=== PATIENT | female | born 1955 | race Caucasian/White ===

== ENCOUNTER 2022-07-21 14:23 | Outpatient (REF) | payer MEDICARE, MEDICAID, SELFPAY ==
--- NOTE | 2022-07-21 10:30 | EMG_ITS ---
Please see scanned EMG / Nerve Conduction Report. MTDD
== END 2022-07-21 14:24 | disposition home or self-care (01) ==
LOC: HO.NEURO 14:23
PROVIDERS: PCP Pediatrics; Visit Provider Internal Medicine
DX: G56.03 Carpal tunnel syndrome, bilateral upper limbs (principal)
CPT/HCPCS: 95885; 95913

== ENCOUNTER 2024-04-26 09:59 | Outpatient (REF) | payer OTHER, SELFPAY ==
[2024-04-26 14:12] LABS: MANUAL DIFF FLAG NO
[2024-04-26 14:14] LABS: Appearance Urine Cloudy; Color Urine Yellow; Glucose Urine UA >=1000 mg/dL (Negative); Leukocyte Esterase Urine Moderate (2+) (Negative); Nitrite Urine Negative (Negative); Specific Gravity - Urine 1.025 (1.005-1.025); UMIC TRIGGER UACC YES; Urine Blood Negative (Negative); Urine Ketones Trace mg/dL (Negative); Urine Protein Trace mg/dL (Neg-Trace)
[2024-04-26 14:30] LABS: Basophils Absolute Auto 0.1 X10*3/uL (0.0-0.2); Basophils Percent Auto 1.2 % (0-2); Eosinophils Absolute Auto 0.3 X10*3/uL (0.0-0.4); Eosinophils Percent Auto 3.7 % (0-4); Hematocrit 39.6 % (37.0-47.0); Imm Gran Abs Auto 0.02 X10*3/uL (0.00-0.03); Imm Gran Pct Auto 0.3 % (0.0-0.4); Lymphocytes Absolute Auto 1.6 X10*3/uL (1.2-4.9); Lymphocytes Percent Auto 20.8 % (20-40); Mean Corpuscular HGB Conc 30.3 g/dl (31.0-35.0); Mean Corpuscular Hemoglobin 24.7 pg (27.0-33.0); Mean Corpuscular Volume 81.6 fL (80.0-98.0); Mean Platelet Volume 11.8 fL (9.4-12.3); Monocytes Absolute Auto 0.4 X10*3/uL (0.1-1.2); Monocytes Percent Auto 5.8 % (2-11); Neutrophils Absolute Auto 5.1 x10*3/uL (2.0-8.3); Neutrophils Percent Auto 68.2 % (45-73); Platelet Count 274 X10*3/uL (160-400); Red Blood Count 4.85 X10*6/uL (4.20-5.50); Red Cell Distribution Width 14.7 % (11.0-16.0); White Blood Count 7.5 X10*3/uL (4.8-10.8)
[2024-04-26 14:33] LABS: Bacteria Urine Trace (None Seen); Hyaline Casts Urine 0-2 /LPF (0-2); RBC Urine 0-2 /HPF (0-2); UACC Culture Trigger YES; WBC Urine 21-50 /HPF (0-5)
[2024-04-26 14:34] LABS: Estimated Average Glucose 206 mg/dL; Hemoglobin A1c % 8.8 % (<6.0)
[2024-04-26 14:54] LABS: Alanine Aminotransferase 55 U/L (0-31); Albumin Level 3.6 g/dL (3.5-5.0); Alkaline Phosphatase 125 U/L (39-117); Anion Gap 12 (12-20); Aspartate Amino Transferase 33 U/L (5-31); Bilirubin Direct 0.1 mg/dL (0.0-0.5); Bilirubin Total 0.3 mg/dL (0.0-1.0); Blood Urea Nitrogen 21 mg/dL (9-16); C Reactive Protein 0.71 mg/dL (< or = 0.50); Carbon Dioxide 28 mmol/L (22-29); Chloride 99 mmol/L (96-108); Cholesterol 95 mg/dL (<200); Estimated Glomerular Filt Rate 42; Glucose Fasting 387 mg/dL (60-99); HDL Cholesterol 35 mg/dL (>40); LDL Cholesterol Calculated 30 mg/dL (<100); Potassium 3.4 mmol/L (3.3-5.1); Sodium 136 mmol/L (135-145); Total Protein 6.8 g/dL (6.5-8.0); Triglycerides 152 mg/dL (<150)
[2024-04-26 15:02] LABS: TSH reflex Free T4 1.66 uIU/mL (0.32-4.0)
[2024-04-26 15:07] LABS: Erythrocyte Sedimentation Rate 14 MM/HR (0-20); Folate 11.3 ng/mL (> or = 4.0); Vitamin B12 1307 pg/mL (200-900)
== END 2024-04-26 10:00 | disposition home or self-care (01) ==
LOC: HO.CHCLDS 09:59
PROVIDERS: Visit Provider Pediatrics
DX: E11.40 Type 2 diabetes mellitus with diabetic neuropathy, unspecified (principal); Z79.4 Long term (current) use of insulin; M25.512 Pain in left shoulder; G89.29 Other chronic pain
CPT/HCPCS: 36415; 80048; 80061; 80076; 81001; 82607; 82746; 83036; 84443; 85025; 85652; 86140; 87086

== ENCOUNTER 2025-07-03 08:27 | Outpatient (REF) | payer OTHER, SELFPAY ==
--- OUTSIDE RECORDS SUMMARY | 2025-07-02 09:15 | XMS_ITS | Encounter Summary ---
Author Organization [employer] Address [address] [place] [address] [address] [place] [address] Care Team Providers Care Parking Technician Name Role Phone Karlie Prescott MD Primary Care Provider [phone] Yesi Joyce PharmD Unavailable [phone] Reason for Referral * Imaging (Routine) - Authorized Specialty Diagnoses / Procedures Referred By Contac t Referred To Contact Radiology Diagnoses Dizziness Syncope, unspecified syncope type Procedures Mr Brain w/ and w/o Contrast Karlie Prescott MD [address] [place] [phone] Phone: tel: fax: [facility] [address] [facility], [address] [place] [phone] Phone: tel: fax: Referral ID Status Reason Start Date Expiration Date V isits Requested Visits Authorized [id number] Authorized 07/02/2025 07/02/2026 1 1 Encounter Details Date Type Department Care Team (Late st Contact Info) Description 07/02/2025 9:15 AM EST Office Visit [facility] [address] [place] [address] Karlie Prescott MD [address] [place] [address] Polyuria (Primary Dx); Dizziness; Syncope, unspecified syncope type; Type 2 diabetes mellitus with diabetic neuropathy, with long-term current use of insulin (HCC); Chronic left shoulder pain Social History Tobacco Use Types Packs/Day Years Used Date Smoking Tobacco: Never Passive Smoke Exposure: Never Smokeless Tobacco: Never Depression Answer Date Recorded Patient Health Questionnaire-9 Score 15 07/02/2025 Patient Health Questionnaire-9 Score 15 07/02/2025 Last PHQ-9: Questionnaire Data Not on file 1 09/01/2024 Housing Stability Answer Date Recorded What is your housing situation today? I have nishant [employer] 07/02/[address] you li ve. Do you have problems with any of the following? Pests such as bugs, ants, or mice 07/02/2025 Food Insecurity Answer Date Recorded Within the past 12 months, y ou worried that your food would run out before you got money to buy more: Often true 2024 Within the past 12 months,th e food you bought just didn't last and you didn't have enough money to get more: Sometimes True 07/02/2025 Transportation Answer Date Recorded In the past 12 months, has l ack of transportation kept you from medical appts, meetings, work or from getting things needed for daily living? No 09/21/2024 Utilities Answer Date Recorded In the past 12 months, has t he electric, gas, oil or water company threatened to shut off services in your home? No 09/21/2024 Depression Answer Date Recorded Patient Health Questionnaire-2 Score 6 07/02/2025 Internet Access Answer Date Recorded Internet Access Q1 Yes 09/21/2024 Internet Access Q2 Not on file 09/21/2024 Comments No Sex and Gender Information Value Date Recorded Sex Assigned at Female 06/14/2022 10:18 AM EDT Legal Sex Female 10:18 AM EDT Gender Identity Female 06/14/2022 10:18 AM EDT Sexual Orientation Choose not to disclose 2021 10:18 AM EDT documented as of this encounter Last Filed Vital Signs Vital Sign Reading Time Taken Comments Blood Pressure 140/60 07/02/2025 9:08 AM EST Pulse 104 07/02/2025 9:08 AM EST Temperature 36.8 C (98.3 F) 07/02/2025 9:08 AM EST Respiratory Rate 20 07/02/2025 9:08 AM EST Oxygen Saturation - - Inhaled Oxygen Concentration - - Weight 68.9 kg (152 lb) 07/02/2025 9:08 AM EST Height 168.3 cm (5' 6.25 ) 07/02/2025 9:08 AM ES T Body Mass Index 24.35 07/02/2025 9:08 AM EST documented in this encounter Functional Status * Over the past 2 weeks, how often have you been bothered by any of the following problems? Question Answer Date of Assessment Author Patient Health Questionnaire -2 Score 6 07/02/2025 9:40 AM Mingo Dumont MA * Little interest or pleasure in doing things Answer Date of Assessment Author Nearly every day 07/02/2025 9:40 AM Wilma Guzman MA * Feeling down, depressed, or hopeless Answer Date of Assessment Author Nearly every day 07/02/2025 9:40 AM Wilma Guzman MA * Trouble falling or staying asleep, or sleeping too much Answer Date of Assessment Author Nearly every day 07/02/2025 9:40 AM Wilma Guzman MA * Feeling tired or having little energy Answer Date of Assessment Author Nearly every day 07/02/2025 9:40 AM Wilma Guzman MA * Poor appetite or overeating Answer Date of Assessment Author Several days 07/02/2025 9:40 AM Wilma Dumont MA * Feeling bad about yourself - or that you are a failure or have let yourself or your family down Answer Date of Assessment Author Not at all 07/02/2025 9:40 AM Wilma Dumont MA * Trouble concentrating on things, such as reading the newspaper or watching television Answer Date of Assessment Author Not at all 07/02/2025 9:40 AM Wilma Dumont MA * Moving or speaking so slowly that other people could have noticed? Or the opposite - being so fidgety or restless that you have been moving around a lot more than usual. Answer Date of Assessment Author More than half the days 07/02/2025 9:40 AM Wilma Austin MA * Thoughts that you would be better off or hurting yourself in some way Answer Date of Assessment Author Not at all 07/02/2025 9:40 AM Wilma Dumont MA * Patient Health Questionnaire-9 Score Answer Date of Assessment Author 15 07/02/2025 9:40 AM Wilma Dumont MA * How difficult have these problems made it for you to do your work, take care of things at home, or get along with other people? Answer Date of Assessment Author Somewhat difficult 07/02/2025 9:40 AM Wilma Garcia MA documented as of this encounter Progress Notes * Karlie Prescott MD - 07/02/2025 9:15 AM EST Images from the original note were not included. Subjective Patient ID: Daksha West is a 70 y.o. female who presents for F/U DM. 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 Reports being awakened by her glucose monitor due to low blood sugar, after which she consumes juice or something sweet to correct it. States that recent changes in her insulin regimen included lowering Lantus to 34 units and increasing pre-meal insulin to 25 units. Uses insulin three times daily before meals. Reports continued hypoglycemic episodes despite adjustment of Lantus. States that hypoglycemia also occurs during the day and is associated with falls and dizziness. Notes that her blood sugar was super low during some falls. Reports eating regular meals, including rice, b eans, meat, and plantains, but sometimes only eats a little or skips breakfast. Mentions taking jardiance and ozempic once a week for diabetes management. Hemoglobin A1c was 9.4 in January 2025 and decreased to 8.8 in May 2025.Sees [facility] Yesi Joyce on a regular basis as well and has a f/u in 08/08. Falls and Dizziness Reports several episodes of falling, sometimes without noticing, often associated with hypoglycemiaand dizziness. States that dizziness sometimes precedes falls and describes brief episodes where her mind goes blank. Denies persistent vertigo but acknowledges intermittent dizziness before falls.CT scan of the head performed in August 2021 after a fall was reported as normal. Shoulder Pain Reports left shoulder pain that doesn't limits ability to lift the arm. No history of trauma but has fallen on that side previously. Xray done in 11/06 was benign. Carpal Tunnel Syndrome Has a history of moderate carpal tunnel syndrome in both wrists confirmed by prior evaluation. Useswrist braces at night. Vision Changes Reports blurry vision during hypoglycemic episodes, especially at night, making it difficult to read. no prescription for glasses given at her last time [facility]. Urinary Symptoms States she urinates frequently but denies burning with urination. Occasionally experiences constipation. Mood Describes variable mood with some days feeling cheerful and other days feeling low energy or tired. Fibromyalgia Has a known diagnosis of fibromyalgia with chronic pain complaints. Has bilateral moderate carpal tunnel syndrome diagnosis via EMG but not using wrist braces . Review of Systems Constitutional: Negative for activity change, chills, fever and unexpected weight change. Respiratory: Negative for cough, shortness of breath and wheezing. Cardiovascular: Negative for chest pain, palpitations and leg swelling. Gastrointestinal: Negative for abdominal pain and blood in stool. Endocrine: Negative for polydipsia and polyuria. Genitourinary: Negative for decreased urine volume, difficulty urinating, dysuria and hematuria. Musculoskeletal: Negative for arthralgias and gait problem. Skin: Negative for color change and rash. Neurological: Positive for light-headedness. Negative for dizziness and headaches. Hematological: Negative for adenopathy. Psychiatric/Behavioral: Negative for dysphoric mood, hallucinations, sleep disturbance and suicidalideas. The patient is not nervous/anxious. Objective BP (!) 140/60 (BP Location: Left arm, Patient Position: Sitting, BP Cuff Size: Adult) Pulse 104 Temp 98.3 ??F (36.8 ??C) (Oral) Resp 20 Ht 5' 6.25 (1.683 m) Wt 152 lb (68.9 kg) BMI 24.35 kg/m?? Physical Exam Vitals reviewed. Constitutional: General: She is not in acute distress. Appearance: Normal appearance. She is not ill-appearing. HENT: Head: Normocephalic. Right Ear: Tympanic membrane and ear canal normal. Left Ear: Tympanic membrane and ear canal normal. Nose: Nose normal. Mouth/Throat: Mouth: Mucous membranes are moist. Pharynx: No oropharyngeal exudate or posterior oropharyngeal erythema. Eyes: Extraocular Movements: Extraocular movements intact. Conjunctiva/sclera: Conjunctivae normal. Pupils: Pupils are equal, round, and reactive to light. Cardiovascular: Rate and Rhythm: Normal rate and regular rhythm. Pulses: Normal pulses. Heart sounds: Normal heart sounds. Pulmonary: Effort: Pulmonary effort is normal. No respiratory distress. Breath sounds: Normal breath sounds. Abdominal: Palpations: Abdomen is soft. Musculoskeletal: General: No swelling. Normal range of motion. Right shoulder: Normal pulse. Left shoulder: Tenderness present. No swelling or crepitus. Normal range of motion. Normal pulse. Arms: Cervical back: Normal range of motion. No rigidity. Right lower leg: No edema. Left lower leg: No edema. Lymphadenopathy: Cervical: No cervical adenopathy. Skin: General: Skin is warm. Capillary Refill: Capillary refill takes less than 2 seconds. Neurological: General: No focal deficit present. Mental Status: She is alert and oriented to person, place, and time. Psychiatric: Mood and Affect: Mood normal. Behavior: Behavior normal. Thought Content: Thought content normal. Judgment: Judgment normal. Assessment/Plan Polyuria: - Polyuria likely related to diabetes management and use of oral antidiabetic medication. - Recommended increased fluid intake. Ordered urinalysis to evaluate for urinary tract infection. Advised to continue monitoring urine clarity. Dizziness: - Dizziness associated with episodes of hypoglycemia and syncope. - Ordered blood tests to evaluate renal function and other metabolic parameters. Ordered MRI of thebrain for further evaluation due to persistent dizziness and history of syncope. Advised to presentfasting for blood work. Syncope, unspecified syncope type: - Syncope episodes likely related to hypoglycemia; previous CT scan of the brain in August 2021 was normal. - Ordered MRI of the brain for further evaluation. Advised blood work to assess renal function prior to MRI scheduling. Type 2 diabetes mellitus with diabetic neuropathy, with long-term current use of insulin (HCC): - Diabetes management complicated by frequent nocturnal hypoglycemia and polyuria. Diabetic neuropathy present. - Adjusted Lantus insulin dose from 34 units to 30 units to reduce nocturnal hypoglycemia. Advised continued use of pre-meal insulin injections. Ordered comprehensive blood work including renal function, cholesterol, and glucose levels. Advised to maintain regular meals and monitor for hypoglycemicepisodes. Advised increased fluid intake, especially with oral antidiabetic medication ([facility]) to reduce risk of urinary tract infection. Scheduled follow-up appointment in August. Chronic left shoulder pain: - Chronic left shoulder pain without evidence of arthritis on prior imaging. - Advised continued use of prescribed pain medication. Ordered MRI of the shoulder for further evaluation. Carpal tunnel syndrome: - Bilateral moderate carpal tunnel syndrome confirmed by prior evaluation. - Advised continued use of wrist braces, especially at night. Referral to hand surgeon previously made; advised to return to hand surgeon if symptoms worsen or if objects are dropped from hands. Surgery offered if symptoms become severe and patient consents. Fibromyalgia: - Fibromyalgia contributing to pain symptoms. - No change in medication dosage until further evaluation is completed. Blurred vision: - Blurred vision associated with hypoglycemic episodes; no current prescription for corrective lenses. - Referral to ophthalmology for further evaluation. Diagnoses and all orders for this visit: Polyuria - POCT Urinalysis - Albumin, Random Urine W/Creatinine; Future - Lipid Panel, Standard; Future - Basic Metabolic Panel, Fasting; Future - CBC auto differential; Future - TSH W/Reflex to FT4; Future - Hepatic Function Panel; Future Dizziness - Mr Brain w/ and w/o Contrast; Future - Albumin, Random Urine W/Creatinine; Future - Lipid Panel, Standard; Future - Basic Metabolic Panel, Fasting; Future - CBC auto differential; Future - TSH W/Reflex to FT4; Future - Hepatic Function Panel; Future Syncope, unspecified syncope type - Mr Brain w/ and w/o Contrast; Future - Albumin, Random Urine W/Creatinine; Future - Lipid Panel, Standard; Future - Basic Metabolic Panel, Fasting; Future - CBC auto differential; Future - TSH W/Reflex to FT4; Future - Hepatic Function Panel; Future Type 2 diabetes mellitus with diabetic neuropathy, with long-term current use of insulin (HCC) - Albumin, Random Urine W/Creatinine; Future - Lipid Panel, Standard; Future - Basic Metabolic Panel, Fasting; Future - CBC auto differential; Future - TSH W/Reflex to FT4; Future - Hepatic Function Panel; Future Chronic left shoulder pain - Albumin, Random Urine W/Creatinine; Future - Lipid Panel, Standard; Future - Basic Metabolic Panel, Fasting; Future - CBC auto differential; Future - TSH W/Reflex to FT4; Future - Hepatic Function Panel; Future documented in this encounter Plan of Treatment Upcoming Encounters Date Type Department Care Team (Late st Contact Info) Description 07/25/2025 1:00 PM EST Medication Management [facility] [address] [place] [address] Yesi Joyce, BranD [address] [place] [address] 09/05/2025 3:15 PM EST Office Visit [facility] [address] [place] [address] Karlie Prescott MD [address] [place] [address] Scheduled Orders Name Type Priority Associated Diagnoses Orde r Schedule Mr Brain w/ and w/o Contrast Imaging Routine Dizziness Syncope, unspecified syncope type Expected: 07/02/2025, Expires: 07/02/2026 documented as of this encounter Goals Goal Patient Goal Type Associated Problems Recent Progress Patient-Stated? Author Help patients manage their type 2 diabetes Care Plan Help patients manage their type 2 diabetes No Wilma Monzon MA Weekly blood pressure task Care Plan Weekly blood pressure task No Wilma Monzon MA Help patients manage their type 2 diabetes Care Plan Help patients manage their type 2 diabetes No Wilma Monzon MA Patient has chronic kidney disease Care Plan Patient has chronic kidney disease No Wilma Monzon MA Weekly blood pressure task Care Plan Weekly blood pressure task No Wilma Monzon MA Patient has chronic kidney disease Care Plan Patient has chronic kidney disease No Wilma Monzon MA Weekly blood pressure task Care Plan Weekly blood pressure task No Wilma Monzon MA Weekly blood pressure task Care Plan Weekly blood pressure task No Wilma Monzon MA Patient has chronic kidney disease Care Plan Patient has chronic kidney disease No Wilma Monzon MA Patient has chronic kidney disease Care Plan Patient has chronic kidney disease No Wilma Monzon MA documented as of this encounter Procedures Procedure Name Priority Date/Time Associated Diagnosis Comments ALBUMIN, RANDOM URINE W/CREATININE Routine 07/03/2025 8:30 AM EST Polyuria Dizziness Syncope, unspecified syncope type Type 2 diabetes mellitus with diabetic neuropathy, with long-term current use of insulin (HCC) Chronic left shoulder pain BASIC METABOLIC PANEL, FASTING Routine 07/03/2025 8:28 AM EST Polyuria Dizziness Syncope, unspecified syncope type Type 2 diabetes mellitus with diabetic neuropathy, with long-term current use of insulin (HCC) Chronic left shoulder pain TSH W/REFLEX TO FT4 Routine 07/03/2025 8 :28 AM EST Polyuria Dizziness Syncope, unspecified syncope type Type 2 diabetes mellitus with diabetic neuropathy, with long-term current use of insulin (HCC) Chronic left shoulder pain CBC WITH AUTO DIFFERENTIAL Routine 07/03/2025 8:28 AM EST Polyuria Dizziness Syncope, unspecified syncope type Type 2 diabetes mellitus with diabetic neuropathy, with long-term current use of insulin (HCC) Chronic left shoulder pain HEPATIC FUNCTION PANEL Routine 07/03/2025 8:28 AM EST Polyuria Dizziness Syncope, unspecified syncope type Type 2 diabetes mellitus with diabetic neuropathy, with long-term current use of insulin (HCC) Chronic left shoulder pain LIPID PANEL, STANDARD Routine 07/03/2025 8:28 AM EST Polyuria Dizziness Syncope, unspecified syncope type Type 2 diabetes mellitus with diabetic neuropathy, with long-term current use of insulin (HCC) Chronic left shoulder pain POCT URINALYSIS DIPSTICK Routine 07/02/2025 9:38 AM EST Polyuria documented in this encounter Results * (ABNORMAL) Albumin, Random Urine W/Creatinine (07/03/2025 8:30 AM EST) Creatinine, Urine 106.50 mg/dL [facility] Microalbumin Urine 63.0 mg/L [facility] Microalbum Creatinine Ratio Ur 59.1(H) <30 ug/mg cr [facility] Comment:Albumin/Creatinine R at Reference Ranges: Normal: < 30 ug/mg creatinine Microalbuminuria: 30 - 300 ug/mg creatinineClinical Albuminuria: > 300 ug/mg creatinine Urine (Urine, Random) 07/03/2025 8:30 AM EST 07/03/2025 2:05 PM EST Karlie Prescott MD LAB URINE ORDERABLES Final Re sult Performing Organization Address City/[facility]/ZIP Co de Phone Number [facility] [address] [place] [phone] * (ABNORMAL) Hepatic Function Panel (07/03/2025 8:28 AM EST) Bilirubin, Total 0.3 0.0 - 1.0 mg/dL [facility] Bilirubin, Direct 0.2 0.0 - 0.5 mg/dL [facility] Aspartate Amino Transferase 45(H) 5 - 31 U/L [facility] Alanine Aminotransferase 33(H) 0 - 31 U/L [facility] Total Protein 7.6 6.5 - 8.0 g/dL [facility] Albumin Level 4.2 3.5 - 5.0 g/dL [facility] Alkaline Phosphatase 134(H) 39 - 117 U/L [facility] Blood Venous blood specimen / Unknown 07/03/2025 8:28 AM EST 07/03/2025 2:06 PM EST Karlie Prescott MD LAB BLOOD ORDERABLES Final Re sult Performing Organization Address [facility] Co de Phone Number [facility] [address] [place] [phone] * TSH W/Reflex to FT4 (07/03/2025 8:28 AM EST) TSH reflex Free T4 3.18 0.32 - 4.0 uIU/mL [facility] Blood Venous blood specimen / Unknown 07/03/2025 8:28 AM EST 07/03/2025 2:06 PM EST Karlie Prescott MD LAB BLOOD ORDERABLES Final Re sult Performing Organization Address City/[facility]/ZIP Co de Phone Number [facility] [address] [place] [phone] * (ABNORMAL) CBC auto differential (07/03/2025 8:28 AM EST) White Blood Count 6.5 4.8 - 10.8 X10*3/uL [facility] Red Blood Count 5.37 4.20 - 5.50 X10*6/uL [facility] Hemoglobin 13.0 12.0 - 16.0 g/dl [facility] Hematocrit 43.7 37.0 - 47.0 % [facility] Mean Corpuscular Volume 81.4 80.0 - 98.0 fL [facility] Mean Corpuscular Hemoglobin 24.2(L) 27.0 - 33.0 pg [facility] Mean Corpuscular HGB Conc 29.7(L) 31.0 - 35.0 g/dl [facility] Red Cell Distribution Width 14.4 11.0 - 16.0 % [facility] Platelet Count 256 160 - 400 X10*3/uL [facility] Mean Platelet Volume 11.2 9.4 - 12.3 fL [facility] Neutrophils Percent Auto 61.3 45 - 73 % [facility] Imm Gran Pct Auto 0.2 0.0 - 0.4 % [facility] Lymphocytes Percent Auto 25.3 20 - 40 % [facility] Monocytes Percent Auto 7.0 2 - 11 % [facility] Eosinophils Percent Auto 4.2(H) 0 - 4 % [facility] Basophils Percent Auto 2.0 0 - 2 % [facility] NRBC Pct Auto 0.0 0.0 - 0.2 /100WBC [facility] Neutrophils Absolute Auto 4.0 2.0 - 8.3 x10*3/uL [facility] Imm Gran Abs Auto 0.01 0.00 - 0.03 X10*3/uL [facility] Lymphocytes Absolute Auto 1.6 1.2 - 4.9 X10*3/uL [facility] Monocytes Absolute Auto 0.5 0.1 - 1.2 X10*3/uL [facility] Eosinophils Absolute Auto 0.3 0.0 - 0.4 X10*3/uL [facility] Basophils Absolute Auto 0.1 0.0 - 0.2 X10*3/uL [facility] NRBC Abs Auto 0.000 0.0 - 0.012 X10*3/uL [facility] Blood Venous blood specimen / Unknown 07/03/2025 8:28 AM EST 07/03/2025 2:06 PM EST Karlie Prescott MD LAB BLOOD ORDERABLES Final Re sult [facility] [address] [place] [phone] * (ABNORMAL) Basic Metabolic Panel, Fasting (07/03/2025 8:28 AM EST) Sodium 142 135 - 145 mmol/L [facility] Potassium 3.6 3.3 - 5.1 mmol/L [facility] Chloride 105 96 - 108 mmol/L [facility] Carbon Dioxide 30(H) 22 - 29 mmol/L [facility] Anion Gap 11(L) 12 - 20 [facility] Urea Nitrogen (BUN) 14 9 - 16 mg/dL [facility] Creatinine, Serum 0.79 0.5 - 1.4 mg/dL [facility] Estimated Glomerular Filt Rate >60 [facility] Comment:Chronic Kidney Disea se: Estimated GFR < 60 mL/min/1.58m1Fgiwec Kidney Disease: Estimated GFR < 15 mL/min/1.73m2 Glucose Fasting 123(H) 60 - 99 mg/dL [facility] Comment:A fasting glucose fr om 100-125 mg/dl is considered impaired(pre-diabetes). Calcium 9.2 8.4 - 10.2 mg/dL [facility] Blood Venous blood specimen / Unknown 07/03/2025 8:28 AM EST 07/03/2025 2:06 PM EST us Karlie Prescott MD LAB BLOOD ORDERABLES Final Re sult Performing Organization Address [facility] Co de Phone Number [facility] [address] [place] [phone] * (ABNORMAL) Lipid Panel, Standard (07/03/2025 8:28 AM EST) Triglycerides 142 <150 mg/dL [facility] Comment:Desirable Triglyceri de: less than 150 mg/dLBorderline High Triglyceride 150-199 mg/dLHigh Triglyceride: 200-499 mg/dLVery High Triglyceride: greater than or equal to 5OO mg/dL Cholesterol 107 <200 mg/dL [facility] Comment:Desirable Cholestero l: less than 200 mg/dLBorderline High Cholesterol: 200-239 mg/dLHigh Cholesterol: greater than 239 mg/dL LDL Cholesterol Calculated 40 <100 mg/dL [facility] Comment:Desirable LDL: less than 100 mg/dLNear Optimal/Above Optimal LDL: 110- 129 mg/dLBorderline High LDL: 130-159 mg/dLHigh LDL: 160-189 mg/dLVery High LDL: greater than or equal to 190 mg/dL HDL Cholesterol 39(L) >40 mg/dL [facility] Comment:Desirable HDL: great er than 40 mg/dL Note: This HDL assay may give artificially low results in patients with liver disease. Blood Venous blood specimen / Unknown 07/03/2025 8:28 AM EST 07/03/2025 2:06 PM EST Karlie Prescott MD LAB BLOOD ORDERABLES Final Re sult Performing Organization Address [facility] Co de Phone Number [facility] [address] [place] [address] [phone] * POCT Urinalysis (07/02/2025 9:38 AM EST) Color, UA Yellow Clarity, UA Clear Glucose, UA Many Comment:500mg/dL Bilirubin, UA Negative Ketones, UA Negative Spec Grav, UA 1.015 Blood, UA Negative Negative, None Detected pH, UA 5.5 Protein, UA Negative Urobilinogen, UA 1.0 Leukocytes, UA Trace Negative, Rare, Trace Nitrite, UA Negative Negative, None Detected Appearance, UA clear QC Media Lot # [id number] Lot# Expiration Date [id number] Urine (Urine, Random) 07/02/2025 9:38 AM EST Karlie Prescott MD POINT OF CARE TEST ENTER/EDIT ORDERABLES Final Result documented in this encounter Visit Diagnoses Diagnosis Polyuria- Primary Dizziness Dizziness and giddiness Syncope, unspecified syncope type Type 2 diabetes mellitus with diabetic neuropathy, with long-term current use of insulin (HCC) Chronic left shoulder pain Pain in joint, shoulder region documented in this encounter Additional Health Concerns Active Problems Noted Date Diagnosed Date Help patients manage their type 2 diabetes 07/01 Weekly blood pressure task 07/01/2025 Help patients manage their type 2 diabetes 07/01 Patient has chronic kidney disease 07/01/2025 Weekly blood pressure task 07/01/2025 Patient has chronic kidney disease 07/01/2025 Weekly blood pressure task 07/02/2025 Weekly blood pressure task 07/02/2025 Patient has chronic kidney disease 07/02/2025 Patient has chronic kidney disease 07/02/2025 Assessment Noted Time PHQ-9 Depression Total Score: 15 025 9:40 AM EST documented as of this encounter Care Teams Parking Technician Relationship Specialty Start Date End Date Karlie Prescott MD [address] [place] [address] PCP - General Family Medicine 08/15/18 Yesi Joyce PharmD [address] [place] [address] Pharmacist Internal Medicine 12/13/24 [employer] 12/06/22 documented as of this encounter
[2025-07-03 14:11] LABS: MANUAL DIFF FLAG NO
[2025-07-03 14:17] LABS: Hematocrit 43.7 % (37.0-47.0); Hemoglobin 13.0 g/dl (12.0-16.0); Imm Gran Abs Auto 0.01 X10*3/uL (0.00-0.03); Imm Gran Pct Auto 0.2 % (0.0-0.4); Lymphocytes Absolute Auto 1.6 X10*3/uL (1.2-4.9); Mean Corpuscular HGB Conc 29.7 g/dl (31.0-35.0); Mean Corpuscular Hemoglobin 24.2 pg (27.0-33.0); Mean Corpuscular Volume 81.4 fL (80.0-98.0); NRBC Abs Auto 0.000 X10*3/uL (0.0-0.012); NRBC Pct Auto 0.0 /100WBC (0.0-0.2); Platelet Count 256 X10*3/uL (160-400); Red Blood Count 5.37 X10*6/uL (4.20-5.50); White Blood Count 6.5 X10*3/uL (4.8-10.8)
[2025-07-03 14:51] LABS: Microalbum/Creatinine Ratio Ur 59.1 ug/mg cr (<30)
[2025-07-03 15:53] LABS: Alanine Aminotransferase 33 U/L (0-31); Albumin Level 4.2 g/dL (3.5-5.0); Alkaline Phosphatase 134 U/L (39-117); Anion Gap 11 (12-20); Aspartate Amino Transferase 45 U/L (5-31); Blood Urea Nitrogen 14 mg/dL (9-16); Calcium 9.2 mg/dL (8.4-10.2); Carbon Dioxide 30 mmol/L (22-29); Chloride 105 mmol/L (96-108); Cholesterol 107 mg/dL (<200); Estimated Glomerular Filt Rate > 60; HDL Cholesterol 39 mg/dL (>40); Potassium 3.6 mmol/L (3.3-5.1); Sodium 142 mmol/L (135-145); Total Protein 7.6 g/dL (6.5-8.0); Triglycerides 142 mg/dL (<150)
--- OUTSIDE RECORDS SUMMARY | 2025-07-03 16:11 | XMS_ITS | Encounter Summary ---
Author Organization [employer] Address [address] [place] [address] 7 [place] [address] Care Team Providers Care Enrollment Counselor Name Role Phone Karlie Prescott MD Primary Care Provider [phone] Yesi Joyce PharmD Unavailable [phone] Reason for Visit * Reason Comments Med Refill Encounter Details Date Type Department Care Team ([facility] Contact Info) Description 02/10/2023 Refill [facility] MED & PEDS [address] [place] [address] Hudson Lowery MD [address] [place] [address] Social History Tobacco Use Types Packs/Day Years Used Date Smoking Tobacco: Never Assessed Comments Unknown Sex and Gender Information Value Date Recorded Sex Assigned at Female 06/14/2022 10:18 AM EDT Legal Sex Female 10:18 AM EDT Gender Identity Female 06/14/2022 10:18 AM EDT Sexual Orientation Choose not to disclose 2021 10:18 AM EDT documented as of this encounter Plan of Treatment Upcoming Encounters Date Type Department Care Team ([facility] Contact Info) Description 07/25/2025 1:00 PM EST Medication Management [facility] MED & PEDS [address] [place] [address] Yesi Joyce, PharmD [address] [place] [address] 09/05/2025 3:15 PM EST Office Visit [facility]ED[facility] [address] [place] [address] Karlie Prescott MD [address] [place] [address] documented as of this encounter Visit Diagnoses Not on filedocumented in this encounter Care Teams Enrollment Counselor Relationship Specialty Start Date End Date Karlie Prescott MD [address] [place] [address] PCP - General Family Medicine 08/15/18 Yesi Joyce PharmD [address] [place] [address] Pharmacist Internal Medicine 12/13/24 [employer] 12/06/22 documented as of this encounter
--- OUTSIDE RECORDS SUMMARY | 2025-07-03 16:11 | XMS_ITS | Encounter Summary ---
Author Organization [employer] Address [address] [facility] [address] [place] [address] Care Team Providers Care Auto Heater Mechanic Name Role Phone Karlie Prescott MD Primary Care Provider [phone] Yesi Joyce PharmD Unavailable [phone] Encounter Details Date Type Department Care Team (Latest Contact Info) Description 07/02/2025 Travel Social History Tobacco Use Types Packs/Day Years [...] AM EDT documented as of this encounter Functional Status * Over the [...] than half the days 07/02/2025 9:40 AM EST Wilma Banks MA * Thoughts that you would be better off or hurting yourself in some way Answer Date of Assessment Author Not at all 07/02/2025 9:40 AM EST Wilma Monzon MA * Patient Health Questionnaire-9 Score Answer Date of Assessment Author 15 07/02/2025 9:40 AM EST Wilma Monzon MA * How difficult have these problems made it for you to do your work, take care of things at home, or get along with other people? Answer Date of Assessment Author Somewhat difficult 07/02/2025 9:40 AM EST Wilma Titus MA documented as of this encounter Plan of Treatment Upcoming Encounters Date Type Department Care Team (Late st Contact Info) Description 07/25/2025 1:00 PM EST Medication Management [facility] MED & PEDS [address] [place] [address] Yesi Joyce PharmD [address] [place] [address] 09/05/2025 3:15 PM EST Office Visit [facility] [address] [place] [address] Karlie Prescott MD [address] [place] [address] documented as of this encounter Goals Goal [...] Care Plan Patient has chronic kidney disease Wilma Bashir MA Weekly blood pressure task Care Plan [...] Monzon [place] documented as of this encounter Visit Diagnoses Not on filedocumented in this encounter Additional Health Concerns Active [...] documented as of this encounter Care Teams Auto Heater Mechanic Relationship Specialty Start Date End Date Karlie Prescott MD [address] [place] [address] PCP - General Family Medicine 08/15/18 Yesi Joyce PharmD [address] [place] [address] Pharmacist Internal Medicine 12/13/24 [employer] 12/06/22 documented as of this encounter
--- OUTSIDE RECORDS SUMMARY | 2025-07-03 16:11 | XMS_ITS | Encounter Summary ---
Author Organization [employer] Address [address] [place] [address] 7 [place] [address] Care Team Providers Care Entry Level Sales Consultant Name Role Phone Karlie Prescott MD Primary Care Provider [phone] Yesi Joyce PharmD Unavailable [phone] Encounter Details Date Type Department Care Team ([facility] Contact Info) Description 02/02/2023 Abstract [facility] MEDICINE [address] [place] [address] Karlie Prescott MD [address] [place] [address] Social History Tobacco Use Types Packs/Day Years [...] Upcoming Encounters Date Type Department Care Team ([facility] Contact Info) Description 07/25/2025 1:00 PM EST Medication Management [facility] MED & PED[facility] [address] [place] [address] Yesi Joyce PharmD [address] [place] [address] 09/05/2025 3:15 PM EST Office Visit [facility] [address] [place] [address] Karlie Prescott MD [address] [place] [address] documented as of this encounter Visit Diagnoses Not on filedocumented in this encounter Care Teams Entry Level Sales Consultant Relationship Specialty Start Date End Date Karlie Prescott MD [address] [place] [address] PCP - General Family Medicine 08/15/18 Yesi Joyce PharmD [address] [place] [address] Pharmacist Internal Medicine 12/13/24 [employer] 12/06/22 documented as of this encounter
--- OUTSIDE RECORDS SUMMARY | 2025-07-03 16:11 | XMS_ITS | Encounter Summary ---
Author Organization [employer] Address [address] [place] [address] [place] [address] Care Team Providers Care Mulcher Operator Name Role Phone Karlie Prescott MD Primary Care Provider [phone] Yesi Joyce PharmD Unavailable [phone] Encounter Details Date Type Department Care Team ([facility] Contact Info) Description 04/15/2023 [facility] Information Management [address] [place], [place] [phone] Karlie Prescott MD [address] [place] [address] Social History Tobacco Use Types Packs/Day Years [...] Encounters Date Type Department Care Team (Late Contact Info) Description 07/25/2025 1:00 PM EST Medication Management [facility] MED & PEDS [address] [place] [address] Yesi Joyce PharmD [address] [place] [address] 09/05/2025 3:15 PM EST Office Visit [facility] MED & PEDS [address] [place], [place] [phone] Karlie Prescott MD [address] [place] [address] documented as of this encounter Visit Diagnoses Not on filedocumented in this encounter Care Teams Mulcher Operator Relationship Specialty Start Date End Date Karlie Prescott MD [address] [place] [address] PCP - General Family Medicine 08/15/18 Yesi Joyce, BranD [address] [place] [address] Pharmacist Internal Medicine 12/13/24 [employer] 12/06/22 documented as of this encounter
--- OUTSIDE RECORDS SUMMARY | 2025-07-03 16:11 | XMS_ITS | Encounter Summary ---
Author Organization [email or web address] Address [address] [place] [address] 7 [place] [address] Care Team Providers Care Net Development Manager Name Role Phone Karlie Prescott MD Primary Care Provider [phone] Yesi Joyce PharmD Unavailable [phone] Reason for Visit * Reason Onset Date Comments Durable Medical Equipment 09/20/2022 Encounter Details Date Type Department Care Team ([facility] Contact Info) Description 09/20/2022 Telephone [facility] CHC MED & PEDS [address] [place], [place] [phone] Karlie Prescott MD [address] [place] [address] Durable Medical Equipment Social History Tobacco Use Types Packs/Day Years Used Date Smoking Tobacco: Never Assessed Comments Unknown Sex and Gender Information Value Date Recorded Sex Assigned at Female 06/14/2022 10:18 AM EDT Legal Sex Female 10:18 AM EDT Gender Identity Female 06/14/2022 10:18 AM EDT Sexual Orientation Choose not to disclose 2021 10:18 AM EDT COVID-19 Exposure Response Date Recorded In the last 10 days, have yo u been in contact with someone who was confirmed or suspected to have Coronavirus/COVID-19? No / Unsure 08/27/2022 11:22 AM EST documented as of this encounter Miscellaneous Notes * Telephone Encounter - Hazel Almanza - 09/20/2022 11:54 AM EST Tc from pt requesting a new wrist braces to be sent to [facility] . phone: [phone] documented in this encounter Plan of Treatment Upcoming Encounters Date Type Department Care Team (Late st Contact Info) Description 07/25/2025 1:00 PM EST Medication Management [facility] MED & PEDS [address] [place] [address] Yesi Joyce PharmD [address] [place] [address] 09/05/2025 3:15 PM EST Office Visit [facility] MED [facility] PED[facility] [address] [place] [address] Karlie Prescott MD [address] [place] [address] documented as of this encounter Visit Diagnoses Not on filedocumented in this encounter Care Teams Net Development Manager Relationship Specialty Start Date End Date Karlie Prescott MD [address] [place] [address] PCP - General Family Medicine 08/15/18 Yesi Joyce PharmD [address] [place] [address] Pharmacist Internal Medicine 12/13/24 [employer] 12/06/22 documented as of this encounter
--- OUTSIDE RECORDS SUMMARY | 2025-07-03 16:11 | XMS_ITS | Clinical Summary ---
Author Organization [employer] Address [address] [place] [address] Care Team Providers Care Electrification Adviser Name Role Phone Karlie Prescott MD Primary Care Provider [phone] Yesi Joyce PharmD Unavailable [phone] Allergies No known active allergies Medications * This document contains information received from the source organization and may not represent a complete record from that organization. clonazePAM (KlonoPIN) 0.5 MG tablet 0.5 mg in the morning and 0.5 mg at noon and 0.5 mg in the evening. Active ibuprofen 600 MG tablet Take 600 mg by mouth in the morning and 600 mg at noon and 600 mg in the evening. Active lidocaine (Lidoderm) 5 % patch Apply 1 patch topically in the morning. Remove & discard patch within 12 hours or as directed by MD. 30 patch 3 024 Active fluticasone (Flonase) 50 MCG/ACT nasal spray Administer 1-2 sprays into each nostril Once per day. 16 g 3 024 Active Blood Glucose Monitoring Suppl (Blood Glucose Monitor System) w/Device kitIndications:T ype 2 diabetes mellitus with diabetic neuropathy, with long-term current use of insulin ([facility]) Check blood sugar as needed several times er day for better control of DM 1 kit 024 Active omeprazole (PriLOSEC) [address] capsule TAKE ONE CAPSULE EVERY MORNING BEFORE BREAKFAST 90 capsule 6 025 Active Jardiance 25 MGIndications:Ty pe 2 diabetes mellitus with hyperglycemia, with long-term current use of insulin ([facility]) TAKE ONE TABLET EVERY MORNING 90 tablet 6 025 Active atorvastatin (Lipitor) 40 MG tabletIndication s:Type 2 diabetes mellitus with diabetic polyneuropathy, with long-term current use of insulin ([facility]) TAKE ONE TABLET EVERY NIGHT AT BEDTIME 90 tablet 3 Active Easy Touch Lancets 33G/Twist miscIndications: Type 2 diabetes mellitus with diabetic polyneuropathy, with long-term current use of insulin ([facility]) USE TO TEST BLOOD SUGAR THREE TIMES DAILY 100 each Active BD Pen Needle Hyacinth U/F 32G X 4 MM misc USE FOUR DAILY 100 each 025 Active amitriptyline (Elavil) 100 MG tablet TAKE ONE TABLET EVERY NIGHT AT BEDTIME 30 tablet 11 07/02/20 25 9:49 AM EST 025 Active glucose blood (FREESTYLE LITE) test stripIndications :Type 2 diabetes mellitus with diabetic polyneuropathy, with long-term current use of insulin ([facility]) USE TO TEST BLOOD SUGAR THREE TIMES DAILY 100 strip Active Continuous Glucose Sensor (FreeStyle Amanda 3 Plus Sensor) misc 1 each every 15 days. 2 each Active glucose blood (FreeStyle Precision Dexter Test) test strip Test blood sugar up to 3 times daily as directed 100 each Active Isopropyl Alcohol (Alcohol Wipes) 70 % misc Use 4 times daily 100 each 025 Active Ozempic, 2 MG/DOSE, 8 MG/3ML solution pen-injectorIndi cations:Type 2 diabetes mellitus without complications ([facility]) INJECT 2 MG'S SUBCUTANEOUSLY EVERY 7 DAYS IN THE ABDOMEN, THIGHS OR UPPER ARM. ROTATE INJECTION SITES. 3 mL 6 Active Alcohol Swabs (Alcohol Prep) 70 % pads USE FOUR TIMES DAILY Active sertraline (Zoloft) 100 MG tabletIndication s:Adjustment disorder with depressed mood,Type 2 diabetes mellitus with diabetic polyneuropathy, with long-term current use of insulin ([facility]) TAKE ONE TABLET EVERY NIGHT AT BEDTIME 30 tablet 5 Active losartan (Cozaar) 25 MG tablet TAKE ONE TABLET EVERY MORNING 30 tablet 11 07/02/20 25 9:49 AM EST 025 Active busPIRone (Buspar) 7.5 MG tabletIndication s:Adjustment disorder with depressed mood,Type 2 diabetes mellitus with diabetic polyneuropathy, with long-term current use of insulin ([facility]) TAKE ONE TABLET TWICE DAILY IN THE MORNING AND AT BEDTIME 60 tablet 5 025 Active loratadine (Claritin) 10 MG tabletIndication s:Type 2 diabetes mellitus with diabetic polyneuropathy, with long-term current use of insulin ([facility]),Adjustment disorder with depressed mood TAKE ONE TABLET EVERY MORNING 90 tablet 1 025 Active cholecalciferol (Vitamin D-3) 125 MCG (5000 UT) capsule TAKE ONE CAPSULE EVERY MORNING 30 capsule 2 025 Active insulin aspart (NovoLOG FLEXPEN) 100 UNIT/ML penIndications:T ype 2 diabetes mellitus with diabetic neuropathy, with long-term current use of insulin ([facility]) Inject 25 units before breakfast and dinner. Inject 15-20 units before lunch and snack 15 mL 2 07/02/20 25 9:49 AM EST 025 Active insulin glargine (Lantus SoloStar) 100 UNIT/ML penIndications:T ype 2 diabetes mellitus with diabetic neuropathy, with long-term current use of insulin ([facility]) INJECT 34 UNITS SUBCUTANEOUSLY EVERY NIGHT AT BEDTIME 15 mL 1 025 Active pregabalin (Lyrica) 200 MG capsuleIndicatio ns:Fibromyositis TAKE ONE TWICE DAILY IN THE MORNING AND AT BEDTIME 60 capsule 1 07/02/20 25 9:49 AM EST 025 Active cyanocobalamin (Vitamin B-12) 1000 MCG tablet TAKE ONE TABLET EVERY MORNING 90 tablet 025 Active cyanocobalamin (Vitamin B-12) 1000 MCG tablet TAKE ONE TABLET EVERY MORNING 90 tablet 025 2024 Discontinued pregabalin (Lyrica) 200 MG capsuleIndicatio ns:Fibromyositis TAKE ONE CAPSULE TWICE DAILY IN THE MORNING AND AT BEDTIME 60 capsule 1 025 2024 Discontinued insulin aspart (NovoLOG FLEXPEN) 100 UNIT/ML penIndications:T ype 2 diabetes mellitus with diabetic neuropathy, with long-term current use of insulin ([facility]) Inject 25 units before breakfast and dinner. 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 DM2 (diabetes mellitus, type 2) 08/29/2022 Adjustment disorder with depressed mood 06/30/20 Hyperlipidemia 05/28/2013 Hypertension 05/28/2013 Anxiety state 08/31/2011 Assessment & Plan (03/27/2024 10:24 AM EDT): During IBH Consult Daksha presenting with depressed mood, loss of interests/pleasure , changes in sleep difficulty staying asleep , change in appetite or weight reduce appetite, trouble concentrating, thoughts of worthlessness or guilt, fatigue/loss of energy, inappropriate guilt , hopelessness, worthlessness , difficulty concentrating and excessive worry/anxiety, difficulty controlling worry, easily fatigued, difficulty concentrating/Mind going blank , irritability, and sleep disturbance difficulty staying asleep ; for a period of 0-6 mo, for some symptoms in the context of and illness or family illness. Daksha has increased anxiety and depression associated with her medical condition. Pt has difficulty sharing with others and seeking out for support. Her strong sense of spirituality and ru is identified as main strength. Her anxiety is stopping her to enjoy spending time with family and living life at its fullest due to the avoidance associated with triggers. During today's consult, Daksha was engaged with active, reflective listening and validation of emotions. Pt agreed to engaged in therapist services and prefers to be referred to external agency (aware of waiting times). clinician will provide additional support if needed. PCP will start medication to treat sxs (See PCP note). PLAN: (check all that apply) New/Additional Services needed PCP management On-site non-integrated services Off-site services for Behavioral Health Integration Plan Internal Follow up with [facility] External OP therapy referral Patient Self Plan Patient to utilize skills provided in intervention , Patient to reach out to [facility] team as needed, Comply with medication , Patient to engage in OP therapy , and Patient [facility] Encounters Date Type Department Care Team Description 07/02/2025 9:15 AM EST Office Visit [facility] [address] [place] [address] Karlie Prescott MD Polyuria (Primary Dx); Dizziness; Syncope, unspecified syncope type; Type 2 diabetes mellitus with diabetic neuropathy, with long-term current use of insulin (HCC); Chronic left shoulder pain 07/02/2025 Travel 07/01/2025 Telephone [facility] [address] [place] [address] Karlie Prescott MD Chart Prep 06/25/2025 Refill [facility] [address] [place] [address] Sirisha Combs MD 06/24/2025 Refill [facility] [address] [place] [address] Karlie Prescott MD Fibromyositis 06/18/2025 Refill [facility] [address] [place] [address] Karlie Prescott MD Fibromyositis 06/15/2025 Refill [facility] [address] [place] [address] Yesi Joyce PharmD Type 2 diabetes mellitus with diabetic neuropathy, with long-term current use of insulin ([facility]) 06/07/2025 Refill [facility] [address] [place] [address] Yesi Joyce PharmD Type 2 diabetes mellitus with diabetic neuropathy, with long-term current use of insulin ([facility]) 06/07/2025 Refill [facility] [address] [place] [address] Yesi Joyce PharmD Type 2 diabetes mellitus with diabetic neuropathy, with long-term current use of insulin ([facility]) 05/24/2025 Refill [facility] [address] [place] [address] Karlie Prescott MD 05/23/2025 Travel 05/09/2025 Refill [facility] [address] [place] [address] Yesi Joyce PharmD Adjustment disorder with depressed mood; Type 2 diabetes mellitus with diabetic polyneuropathy, with long-term current use of insulin ([facility]) 04/30/2025 Telephone [facility] [address] [place] [address] Karlie Prescott MD Nurse Triage 04/29/2025 Refill [facility] [address] [place] [address] Karlie Prescott MD Type 2 diabetes mellitus with diabetic polyneuropathy, with long-term current use of insulin ([facility]); Adjustment disorder with depressed mood; Fibromyositis 04/26/2025 Telephone [facility] [address] [place] [address] Karlie Prescott MD Chart Prep 04/23/2025 Refill [facility] [address] [place] [address] Karlie Prescott MD Adjustment disorder with depressed mood; Type 2 diabetes mellitus with diabetic polyneuropathy, with long-term current use of insulin ([facility]) 04/11/2025 Travel from Last 3 Months Immunizations Immunization Administration Dates Next Due Influenza High-dose Quadrivalent Preservative Fr ee 05/19/2023,06/24/2022 Influenza Whole 07/21/2007,07/05/2001 Influenza injectable quadriv alent IIV4 with preservative 05/03/2017 Influenza injectable quadrivalent preservative f ree 07/27/2016 Influenza, High Dose Seasonal, Preservative Free 05/23/2025,04/26/2024 Influenza, IIV3, injectable 05/03/2014 Influenza, Split (incl. purified surface antigen ) 05/09/2013 Pneumococcal Conjugate PCV 13 03/25/2022 Pneumococcal Conjugate PCV 20 05/23/2025 Pneumococcal Polysaccharide PPSV23 06/24/2009, Td (adult), unspecified 07/05/2001 Tdap 10/02/2015 Zoster, Recombinant 06/15/2021,04/10/2021 Social History Tobacco Use Types Packs/Day Years Used Date Smoking Tobacco: Never Passive Smoke Exposure: Never Smokeless Tobacco: Never Tobacco Cessation:Counseling Given: Not Answered Depression Answer Date Recorded Patient Health Questionnaire-9 [...] not to disclose 2021 10:18 AM EDT Last Filed Vital Signs Vital Sign Reading Time Taken Comments Blood Pressure 140/60 07/02/2025 9:08 AM EST Pulse 104 07/02/2025 9:08 AM EST Temperature 36.8 C (98.3 F) 07/02/2025 9:08 AM EST Respiratory Rate 20 07/02/2025 9:08 AM EST Oxygen Saturation 96% 10/18/2024 1:57 PM EST Inhaled Oxygen Concentration - - Weight 68.9 kg (152 lb) 07/02/2025 9:08 AM EST Height 168.3 cm (5' 6.25 ) 07/02/2025 9:08 AM ES T Body Mass Index 24.35 07/02/2025 9:08 AM EST Plan of Treatment Upcoming Encounters Date Type Department Care Team (Late st Contact Info) Description 07/25/2025 1:00 PM EST Medication Management [facility] [address] [place] [address] Yesi Joyce PharmD [address] [place] [address] 09/05/2025 3:15 PM EST Office Visit [facility] [address], [place] [phone] Karlie Prescott MD [address] [place] [address] Health Maintenance Due Date Last Done Comments CT Colonography 1955 Colonoscopy 1955 FIT 1955 Sigmoidoscopy 1955 Diabetes: Foot Exam 1965 Eye Exam 1965 Hepatitis C Screening 1973 Mammogram 1995 RSV Patients and Patients Aged 60 years or older (1 - Risk 50-74 years 1-dose series) 2005 FOBT 03/29/2025 03/29/2024 COVID-19 Vaccine ( season) 2025 12/22/2021, 11/16/2021 Diabetes: Hemoglobin A1C 08/23/2025 025, 02/07/2025, 10/18/2024, Additional history exists DTaP/Tdap/Td Vaccines (2 - Td or Tdap) 10/02/2025 10/02/2015, 07/05/2001 Depression Monitoring 12/30/2025 07/02/2025, 025 Alcohol/Substance Use Screening 07/02/2026 07/02/2025 SDOH Screening 07/02/2026 07/02/2025 Tobacco Screening 07/02/2026 07/02/2025 Diabetes: Urine Protein Screening 07/03/2026 07/03/2025, 07/01/2022, 04/24/2021, Additional history exists Lipid Panel 07/03/2026 07/03/2025, 04/15, 06/30/2022, Additional history exists Colorectal Cancer Screening 03/29/2027 FIT DNA/Cologuard 03/29/2027 03/29/2024 Zoster Vaccines Completed 06/15/2021, 04/10/2021 Influenza Vaccine Completed 05/23/2025, , 05/19/2023, Additional history exists Pneumococcal Vaccine: 50+ Years Completed 05/23/2025, 03/25/2022, 06/24/2009, Additional history exists HIB Vaccines Aged Out No longer eligi ble based on patient's age to complete this topic HPV Vaccines Aged Out No longer eligi ble based on patient's age to complete this topic Hepatitis A Vaccines Aged Out No long er eligible based on patient's age to complete this topic Hepatitis B Vaccines Aged Out No long er eligible based on patient's age to complete this topic IPV Vaccines Aged Out No longer eligi ble based on patient's age to complete this topic Meningococcal B Vaccine Aged Out No l onger eligible based on patient's age to complete this topic Meningococcal Vaccine Aged Out No linda lukas eligible based on patient's age to complete this topic RSV under 20 months Aged Out No longe r eligible based on patient's age to complete this topic Rotavirus Vaccines Aged Out No longer eligible based on patient's age to complete this topic Goals Goal Patient Goal Type Associated Problems [...] chronic kidney disease No Wilma Monzon [place] Procedures Procedure Name Priority Date/Time Associated Diagnosis [...] neuropathy, with long-term current use of insulin ([facility]) Chronic left shoulder pain TSH W/REFLEX TO [...] DIPSTICK Routine 07/02/2025 9:38 AM EST Polyuria POCT GLYCATED HEMOGLOBIN, TOTAL Routine 05/23/2025 2:25 PM EDT Type 2 diabetes mellitus with diabetic neuropathy, with long-term current use of insulin (HCC) LAB COLOGUARD COLON CANCER SCREEN Routine 03/29/2024 7:15 PM EDT Colon cancer screening from Last 3 Months or Most Recently Relevant to Health Maintenance Results * (ABNORMAL) Albumin, Random Urine W/Creatinine (07/03/2025 8:30 AM EST) Creatinine, Urine 106.50 mg/dL [facility] Microalbumin Urine 63.0 mg/L [facility] Microalbum Creatinine Ratio Ur 59.1(H) <30 ug/mg cr [facility] Comment:Albumin/Creatinine R atio Reference Ranges: Normal: < 30 ug/mg creatinine Microalbuminuria: 30 - 300 ug/mg creatinineClinical Albuminuria: > 300 ug/mg creatinine Urine (Urine, Random) 07/03/2025 8:30 AM EST 07/03/2025 2:05 PM EST us Karlie Prescott MD LAB URINE ORDERABLES Final Re sult [facility] [address] [place] [phone] * (ABNORMAL) Basic Metabolic Panel, Fasting (07/03/2025 8:28 AM EST) Sodium 142 135 - 145 mmol/L [facility] Potassium 3.6 3.3 - 5.1 mmol/L [facility] Chloride 105 96 - 108 mmol/L [facility] Carbon Dioxide 30(H) 22 - 29 mmol/L [facility] Anion Gap 11(L) 12 - 20 [facility] Urea Nitrogen (BUN) 14 9 - 16 mg/dL [facility] Creatinine, Serum 0.79 0.5 - 1.4 mg/dL [facility] Estimated Glomerular Filt Rate >60 [facility] Comment:Chronic Kidney Disea se: Estimated GFR < 60 mL/min/[id number] Kidney Disease: Estimated GFR < 15 mL/min/1.73m2 Glucose Fasting 123(H) 60 - 99 mg/dL [facility] Comment:A fasting glucose fr om 100-125 mg/dl is considered impaired(pre-diabetes). Calcium 9.2 8.4 - 10.2 mg/dL [facility] Blood Venous blood specimen / Unknown 07/03/2025 8:28 AM EST 07/03/2025 2:06 PM EST Karlie Prescott MD LAB BLOOD ORDERABLES Final Re sult Performing Organization Address City/[facility]/ZIP Co de Phone Number [facility] [address] [place] [address] [phone] * TSH W/Reflex to FT4 (07/03/2025 8:28 AM EST) TSH reflex Free T4 3.18 0.32 - 4.0 uIU/mL [facility] Blood Venous blood specimen / Unknown 07/03/2025 8:28 AM EST 07/03/2025 2:06 PM EST Karlie Prescott MD LAB BLOOD ORDERABLES Final Re sult Performing Organization Address City/[facility]/ZIP Co de Phone Number [facility] [address] [place] [phone] * (ABNORMAL) CBC auto differential (07/03/2025 8:28 AM EST) White Blood Count 6.5 4.8 - 10.8 X10*3/uL [facility] Red Blood Count 5.37 4.20 - 5.50 X10*6/uL [facility] Hemoglobin 13.0 12.0 - 16.0 g/dl [facility] Hematocrit 43.7 37.0 - 47.0 % [facility] Mean Corpuscular Volume 81.4 80.0 - 98.0 fL [facility] Mean Corpuscular Hemoglobin 24.2(L) 27.0 - 33.0 pg [facility] Mean Corpuscular HGB Conc 29.7(L) 31.0 - 35.0 g/dl [facility] Red Cell Distribution Width 14.4 11.0 - 16.0 % [facility] Platelet Count 256 160 - 400 X10*3/uL [facility] Mean Platelet Volume 11.2 9.4 - 12.3 fL [facility] Neutrophils Percent Auto 61.3 45 - 73 % [facility] Imm Gran Pct Auto 0.2 0.0 - 0.4 % [facility] Lymphocytes Percent Auto 25.3 20 - 40 % [facility] Monocytes Percent Auto 7.0 2 - 11 % [facility] Eosinophils Percent Auto 4.2(H) 0 - 4 % [facility] Basophils Percent Auto 2.0 0 - 2 % [facility] NRBC Pct Auto 0.0 0.0 - 0.2 /100WBC [facility] Neutrophils Absolute Auto 4.0 2.0 - 8.3 x10*3/uL [facility] Imm Gran Abs Auto 0.01 0.00 - 0.03 X10*3/uL [facility] Lymphocytes Absolute Auto 1.6 1.2 - 4.9 X10*3/uL [facility] Monocytes Absolute Auto 0.5 0.1 - 1.2 X10*3/uL [facility] Eosinophils Absolute Auto 0.3 0.0 - 0.4 X10*3/uL [facility] Basophils Absolute Auto 0.1 0.0 - 0.2 X10*3/uL [facility] NRBC Abs Auto 0.000 0.0 - 0.012 X10*3/uL [facility] Blood Venous blood specimen / Unknown 07/03/2025 8:28 AM EST 07/03/2025 2:06 PM EST Karlie Prescott MD LAB BLOOD ORDERABLES Final Re sult Performing Organization Address [facility]/ZIP Co de Phone Number [facility] [address] [place] [phone] * (ABNORMAL) Hepatic Function Panel (07/03/2025 8:28 AM EST) Bilirubin, Total 0.3 0.0 - 1.0 mg/dL [facility] Bilirubin, Direct 0.2 0.0 - 0.5 mg/dL [facility] Aspartate Amino Transferase 45(H) 5 - 31 U/L [facility] Alanine Aminotransferase 33(H) 0 - 31 U/L [facility] Total Protein 7.6 6.5 - 8.0 g/dL [facility] Albumin Level 4.2 3.5 - 5.0 g/dL [facility] Alkaline Phosphatase 134(H) 39 - 117 U/L [facility] Blood Venous blood specimen / Unknown 07/03/2025 8:28 AM EST 07/03/2025 2:06 PM EST Karlie Prescott MD LAB BLOOD ORDERABLES Final Re sult Performing Organization Address [facility] Co de Phone Number [facility] [address] [place] [phone] * (ABNORMAL) Lipid Panel, Standard (07/03/2025 8:28 AM EST) Triglycerides 142 <150 mg/dL [facility] Comment:Desirable Triglyceri de: less than 150 mg/dLBorderline High Triglyceride 150-199 mg/dLHigh Triglyceride: 200-499 mg/dLVery High Triglyceride: greater than or equal to 5OO mg/dL Cholesterol 107 <200 mg/dL [facility] Comment:Desirable Cholestero l: less than 200 mg/dLBorderline High Cholesterol: 200-239 mg/dLHigh Cholesterol: greater than 239 mg/dL LDL Cholesterol Calculated 40 <100 mg/dL [facility] Comment:Desirable LDL: less than 100 mg/dLNear Optimal/Above Optimal LDL: 110- 129 mg/dLBorderline High LDL: 130-159 mg/dLHigh LDL: 160-189 mg/dLVery High LDL: greater than or equal to 190 mg/dL HDL Cholesterol 39(L) >40 mg/dL [facility] Comment:Desirable HDL: great er than 40 mg/dL Note: This HDL assay may give artificially low results in patients with liver disease. Blood Venous blood specimen / Unknown 07/03/2025 8:28 AM EST 07/03/2025 2:06 PM EST Karlie Prescott MD LAB BLOOD ORDERABLES Final Re sult [facility] [address] [place] [phone] * POCT Urinalysis (07/02/2025 9:38 AM [...] Media Lot # [id number] Lot# Expiration Date [id number] Urine (Urine, Random) 07/02/2025 9:38 AM EST Karlie Prescott MD POINT OF CARE TEST ENTER/EDIT ORDERABLES Final Result * (ABNORMAL) POCT A1c (05/23/2025 2:25 PM EDT) Hemoglobin A1C 8.8(A) 4.0 - 5.7 % QC Media Lot # [id number] Lot# Expiration Date [id number] Blood 05/23/2025 2:25 PM EDT Karlie Prescott MD POINT OF CARE TEST ENTER/EDIT ORDERABLES Final Result * Cologuard?? colon cancer screening (03/29/2024 7:15 PM EDT) Cologuard Result Negative Negative 04/04/20 10:06 AM EDT [employer] (CLIA #:[id number]) Comment: NEGATIVE TEST RESULT. A negative Cologuard result indicates a low likelihood that a colorectal cancer (CRC) or advanced adenoma (adenomatous polyps with more advanced pre-malignant features) is present. The chance that a person with a negative Cologuard test has a colorectal cancer is less than 1 in 1500 (negative predictive value >99.9%) or has an advanced adenoma is less than 5.3% (negative predictive value 94.7%). These data are based on a prospective cross-sectional study of 10,000 individuals at average risk for colorectal cancer who were screened with both Cologuard and colonoscopy. (Kathi Nick et al, N Engl J Med 2014;370(14):6739-5235) The normal value (reference range) for this assay is negative. COLOGUARD RE-SCREENING RECOMMENDATION: Periodic colorectal cancer screening is an important part of preventive healthcare for asymptomatic individuals at average risk for colorectal cancer. Following a negative Cologuard result, the [place] [employer] and U.S. Multi-Society Task Force screening guidelines recommend a Cologuard re-screening interval of 3 years. References: [place] [employer] Guideline for Colorectal Cancer Screening: https://www.cancer.org/cancer/lkudr-vwltlc-dfhkia/cqqopmjbh-mxkecmren-oinuwhd/ac s-rec ommendations.html.; Nimesh PICKARD, Maude CR, Whitney UribeK, Colorectal Cancer Screening: Recommendations for Physicians and Patients from the U.S. Multi-Society Task Force on Colorectal Cancer Screening , Am J Gastroenterology 2017; 112:4917-2114. TEST DESCRIPTION: Composite algorithmic analysis of stool DNA-biomarkers with hemoglobin immunoassay. Quantitative values of individual biomarkers are not reportable and are not associated with individual biomarker result reference ranges. Cologuard is intended for colorectal cancer screening of adults of either sex, 45 years or older, who are at average-risk for colorectal cancer (CRC). Cologuard has been approved for use by the U.S. FDA. The performance of Cologuard was established in a cross sectional study of average-risk adults aged 50-84. Cologuard performance in patients ages 45 to 49 years was estimated by sub-group analysis of near-age groups. Colonoscopies performed for a positive result may find as the most clinically significant lesion: colorectal cancer [4.0%], advanced adenoma (including sessile serrated polyps greater than or equal to 1cm diameter) [20%] or non- advanced adenoma [31%]; or no colorectal neoplasia [45%]. These estimates are derived from a prospective cross-sectional screening study of 10,000 individuals at average risk for colorectal cancer who were screened with both Cologuard and colonoscopy. (Kathi Belle al, N Engl J Med 2014;370(14):1017-0750.) Cologuard may produce a false negative or false positive result (no colorectal cancer or precancerous polyp present at colonoscopy follow up). A negative Cologuard test result does not guarantee the absence of CRC or advanced adenoma (pre-cancer). The current Cologuard screening interval is every 3 years. ([place] [employer] and U.S. Multi-Society Task Force). Cologuard performance data in a 10,000 patient pivotal study using colonoscopy as the reference method can be accessed at the following location: www.[employer]ium/results. Additional description of the Cologuard test process, warnings and precautions can be found at www.[employer] Computing[employer].com. Stool specimen (specimen) 03/29/2024 7:15 PM EDT 03/31/2024 12:52 PM EDT us Karlie Prescott MD LAB MOLECULAR DIAGNOSTICS ORD ERABLES Final Result [employer] (CLIA #:[id number]) [address] [place] [address], from Last 3 Months or Most Recently Relevant to Health Maintenance Additional Health Concerns Active Problems Noted Date [...] 07/02/2025 Patient has chronic kidney disease 07/02/2025 Insurance [facility] OPTIONS (O D-SNP) [facility] STANDARD Care Teams Electrification Adviser Relationship Specialty Start Date End Date Karlie Prescott MD [address] [place] [address] PCP - General Family Medicine 08/15/18 Yesi Joyce PharmD [address] [place] [address] Pharmacist Internal Medicine 12/13/24 [employer] 12/06/22
--- OUTSIDE RECORDS SUMMARY | 2025-07-03 16:11 | XMS_ITS | Data Portability ---
Author Organization [employer] [facility], [facility] Address [address] [place] [address] Care Team Providers Care Paint Roller Covermaker Name Role Phone HIM CCA OTHER RENAN TAMAYO Primary Care Provider [phone] Assessment Encounter Date Assessment Date Assessment LastModified by Organization Details LastModified Time 10/10/2024 10/10/2024 I provided real -time medical direction via phone for this encounter and was available for additional phone-based assistance as needed. I have reviewed and agree with the Assessment and Plan as documented by the Transfer Operator. Patient given the opportunity to ask questions. Our service contacted for an assessment of: Urinary symptoms As per above, patient with approximately 24 hours of dysuria, frequency. No history of frequent urinary tract infections. Denies fever, chills, abdominal pain, back pain, flank pain. Per freelance translator on the scene, Vital signs are stable and the patient is afebrile. Patient is nontoxic in appearance. UA is positive for nitrates. Impression: Urinary symptoms and UTI Plan: Levaquin 500 mg for 3 days. F/u urine cx Allergies: reviewed We discussed the diagnostic uncertainty of home visits and the risk associated with this. In this case, the patient and I felt this to be an acceptable and reasonable amount of risk given the benefit of avoiding an ED visit. We discussed the need to seek care urgently/emergen tly in the setting of any new or worsening serious symptoms, particularly fever chills [email or web address] Not available 10/10/2024 12:59:41 Plan of Treatment Reminders Order Date Submit Date Provider Last Modified By Organization Details Last Modified Time Details Appointments None recorded. Lab urinalysis, dipstick 2024 025 [facility], [address] [place] [address], [id number] 18:12:48 culture, urine 2024 025 [place] [facility] (Centralized Electronic Ordering - All Locations), Patient Can Go To The Location Of Their Choice, [id number] 06:07:41 Referral None recorded. Procedures None recorded. Surgeries None recorded. Imaging None recorded. Medication Orders levofloxaci n [address] [facility], [address] [place], [place], [id number], 14:12:49 levofloxaci n 500 mg tablet 2024 025 [email or web address] [facility], [address] [place], [place], [id number], 12:59:20 Patient TargetsNo targets recorded. Patient InstructionsNo instructions recorded. Reason for Referral None Reported. Results Created Date Observation Date Name Description Value Unit Range Abnormal Flag Note LastModifiedBy Organization Detail LastModifiedTime 10/10/1910/12/2024 URINE CULTU RE,CO MPREH ENSIV E urine culture,comp rehensive Final report abnormal Not Available [facility] ([facility]) [address] [facility], [place], [address], 10/12/2024 12:05:58 10/10/1910/12/2024 URINE CULTU RE,CO MPREH ENSIV E result 1 Escher ichia coli abnormal Cefaz daniel with an JEFF <=16 predi cts susce ptibi lity to the oral agent s cefac demetris, cefdi jamal, cefpo doxim e, cefpr ozil, cefur oxime , cepha lexin , and lorac arbef when used for thera py of uncom plica ajay urina ry tract infec tions due to E. coli, Klebs iella pneum oniae , and Prote us mirab ilis. Great er than 100,0 00 colon y formi ng units per mL Not Available [facility] ([facility]) [address] [facility], [place], [address], 10/12/2024 12:05:58 10/10/19 25 10/12/2024 URINE CULTU RE,CO MPREH ENSIV E antimicrobia l susceptibili ty Commen t S = Susce ptibl e; I = Inter media te; R = Resis tant P = Posit ambrose; N = Negat ambrose MICS are expre ssed in micro grams per mL Antib iotic RSLT# 1 RSLT# 2 RSLT# 3 RSLT# 4 Amoxi cilli n/Cla vulan ic Acid S Ampic illin S Cefaz daniel S Cefep frannie S Cefox itin S Cefpo doxim e S Ceftr iaxon e S Cipro floxa kevin S Ertap enem S Genta micin S Levof loxac in S Merop enem S Nitro furan toin S Piper acill in/Ta zobac bravo S Tetra cycli ne S Tobra mycin S Trime thopr im/Yang lfa S Not Available [facility] ([facility]) [address] [facility], [place], [address], 10/12/2024 12:05:58 Result Notes None recorded. Medical Equipment None Reported. Allergies No known drug allergies Medications Name Sig Start Date Stop Date Status Note LastModified by Organization Details LastModified Time medbox status USE DIRECTED active Not Available Not Available No t Available atorvastatin 40 mg tablet TAKE ONE TABLET EVERY NIGHT AT BEDTIME active Not Available Not Available N ot Available trazodone 50 mg tablet TAKE ONE TABLET EVERY NIGHT AT BEDTIME active Not Available Not Available N ot Available cefpodoxime 100 mg tablet TAKE ONE TABLET EVERY TWELVE HOURS FOR 7 DAYS active Not Available Not Available No t Available sertraline 100 mg tablet TAKE ONE TABLET EVERY NIGHT AT BEDTIME active Not Available Not Available N ot Available cyanocobalam in (vit B-12) 1,000 mcg tablet TAKE ONE TABLET EVERY MORNING active Not Available Not Available No t Available amitriptylin e 50 mg tablet TAKE ONE TABLET EVERY NIGHT AT BEDTIME active Not Available Not Available N ot Available losartan 25 mg tablet TAKE ONE TABLET EVERY MORNING active Not Available Not Available No t Available buspirone 7.5 mg tablet TAKE ONE TABLET TWICE DAILY IN THE MORNING AND AT BEDTIME active Not Available Not Available N ot Available omeprazole 20 mg capsule,robbi yed release TAKE ONE CAPSULE EVERY MORNING BEFORE BREAKFAST active Not Available Not Available No t Available levofloxacin 500 mg tablet TAKE ONE TABLET EVERY 24 HOURS FOR 2 DAYS active Not Available Not Available No t Available losartan 50 mg-hydrochlo rothiazide 12.5 mg tablet TAKE ONE TABLET EVERY MORNING active Not Available Not Available No t Available ondansetron 4 mg disintegrati ng tablet TAKE ONE TABLET EVERY 8 HOURS NEEDED FOR NAUSEA AND VOMITING active Not Available Not Available No t Available fluticasone propionate 50 mcg/actuatio n nasal spray,suspen juwan INHALE 1 - 2 SPRAYS IN EACH NOSTRIL ONCE DAILY active Not Available Not Available N ot Available amitriptylin e 100 mg tablet TAKE ONE TABLET EVERY NIGHT AT BEDTIME active Not Available Not Available N ot Available cholecalcife rol (vitamin D3) 125 mcg (5,000 unit) capsule TAKE ONE CAPSULE EVERY MORNING active Not Available Not Available No t Available loratadine 10 mg tablet TAKE ONE TABLET EVERY MORNING active Not Available Not Available No t Available Novolog FlexPen U-100 Insulin aspart 100 unit/mL (3 mL) subcutaneous INJECT 4 to 24 UNITS SUBCUTANEOU SLY THREE TIMES DAILY BEFORE MEALS PER SLIDING SCALE active Not Available Not Available No t Available pregabalin 200 mg capsule TAKE ONE CAPSULE TWICE DAILY IN THE MORNING AND AT BEDTIME active Not Available Not Available N ot Available FreeStyle Lite Strips USE TO TEST BLOOD SUGAR THREE TIMES DAILY active Not Available Not Available No t Available Lantus Solostar U-100 Insulin 100 unit/mL (3 mL) subcutaneous pen INJECT 51 UNITS SUBCUTANEOU SLY AT BEDTIME active Not Available Not Available No t Available BD Ultra-Fine Hyacinth Pen Needle 32 gauge x 5/32 USE FOUR DAILY active Not Available Not Available No t Available Easy Touch Twist Lancets 33 gauge USE TO TEST BLOOD SUGAR THREE TIMES DAILY active Not Available Not Available No t Available Jardiance 25 mg tablet TAKE ONE TABLET EVERY MORNING active Not Available Not Available No t Available Ozempic 2 mg/dose (8 mg/3 mL) subcutaneous pen injector INJECT 2 MG'S SUBCUTANEOU SLY EVERY 7 DAYS IN THE ABDOMEN, THIGHS OR UPPER ARM. ROTATE INJECTION SITES. active Not Available Not Available No t Available Vitals Date Recorded Body temperature Heart rate Oxygen saturation Oxygen saturation in Arterial blood by Pulse oximetry Body weight Body height Respiratory rate Systolic And Diastolic Provider Name and Address Organization Details Last Updated DateTime 98.7 [degF] 96 /min 96 % 96 % 30884.7 2 g 170.18 cm 16 /min 156/78 mm[Hg] Not Available [employer] - production 12:51:37 Social History None recorded. Functional Status None recorded. Mental Status None recorded. Family History Nothing Reported. Medical History No medical history recorded. Gynecological HistoryNo gynecological history recorded. Obstetrics History GPAL:G 0 P 0 0 0 0 Past Encounters Encounter ID Performer Location Encounter Start Date Encounter Closed Date Diagnosis/Indication Diagnosis SNOMED-CT Code Diagnosis ICD10 Code Diagnosis IMO Codes Diagnosis Note [id number] Mallory Marcus MD Main - [facility] [address] [place] [phone] 10/10/2024 12:43:22 10/11/2024 00:30:41 Urinary symptoms 836001657 R39.9 Health Concerns Section Related Observation LastModified by Organization Detai ls LastModified Time None Recorded Concern Status LastModified by Organization Details LastModified Time None Recorded Advance Directives Directive None Recorded Payers Insurance Date Sequence Insurance Name Policy Number Policy Alcantar Covered Member ID Alcantar Member ID Guarantor Name 04/03/2025 1 [facility] - DOS ON OR AFTER 2022 - DUAL ELIGIBLE - SNF OPTIONS AND ONE CARE (MEDICARE REPLACEMENT/ADV ANTAGE - HMO) Daksha West [id number] Daksha West Notes Date Note Type Note Provider Name and Address Organization Details Recorded Time 10/10/2024 text/html HPI: Patient with complaints of urinary pain with voiding thick dark foul smelling urine. .................... .................... .................... .................... .................... .................... .................... . CRC Nurse Triage Notes (EdEvelyn dickey): Patient Reports: Frequent and increased urination with flank pain Denies: Unable to void greater than 5 hours Erection that will not go away after 2 hours Fall or trauma that results in urinary incontinence in the setting of pain Fall or injury that results in incontinence in the absence of pain Lower back pain either unilateral or bilateral, unable to void, painful urination -hematuria Painful urination Painful urination with or without fever Inability to fully empty bladder Chief Complaints: Urinary Catheter/Nephrostomy Tube Problems PMH: Diabetes Mellitus Type 2, Hypertension, Hyperlipidemia PMH Reviewed at 10/10/2024 Allergies Reviewed at 10/10/2024 Comments: Urinary symptoms started 1 months ago. Increased urination with foul smell. Denes dysuria or hematuria. No known fever but feels warm with + chills. Transfer Operator Organization Information for Zelalem Maldonado [employer]REL[employer] Legal Name: [employer] Address: [address] [place] [address], Crisis Clinician: Collin Sood MD [place] No.: [id number] Transfer Operator POC Test Results from Zelalem Maldonado Urine Dipstick (14:16:56) Urine leukocytes: - KIET Urine nitrites: + NIT Urine urobilinogen: - URO Urine protein: - PRO Urine pH: 5.0 pH Urine blood: - BLO Urine specific gravity: 1.015 SG Urine ketones: - KET Urine bilirubin: - MILA Urine glucose: +++ GLU .................... .................... .................... .................... .................... .................... .................... . Transfer Operator Note From Zelalem Maldonado[facility] Pt Georgian speaking only and so cutter woodwind reeds was utilized. Pt presents concerned she has a UTI. Reports difficulty urinating and foul smell for about the last month. Pt also reporting some lower back pain. V/S taken as listed. Pt afebrile. CVA tenderness noted on exam, particularly on the left side. Pt was able to provide urine sample with results as listed. Urine culture sample obtained. Consulted with [facility] [place] [place] Dr. Marcus who prescribed levofloxacin with first dose given on scene. Remainder of script sent to pt's pharmacy. Urine sample delivered to [facility]. Pt education provided. [facility] [place] [place] Lab Orders: urinalysis, dipstick: Performed culture, urine: Performed [facility] [place] [place] Medication Orders: levofloxacin 500 mg tablet: Administered .................... .................... .................... .................... .................... .................... .................... . [facility] [place] [place] Consulted: Mallory Marcus .................... .................... .................... .................... .................... .................... .................... . Disposition: Lucero Marcus MD [address] [facility],[address], [place], [address], RACHELLE Garcia JimdoDAISY DOWNS 10/10/2024 16:43:05 OBGyn Episode No OBEpisode recorded.
--- OUTSIDE RECORDS SUMMARY | 2025-07-03 16:11 | XMS_ITS | Encounter Summary ---
Author Organization [employer] Address [address] [place] [address] 7 [place] [address] Care Team Providers Care Service Crew Leader Name Role Phone Karlie Prescott MD Primary Care Provider [phone] Yesi Joyce PharmD Unavailable [phone] Reason for Visit * Reason Comments Med Refill Encounter Details Date Type Department Care Team (Late Contact Info) Description 04/06/2023 Refill [facility] & PEDS [address] [place] [address] Karlie Prescott MD [address] [place] [address] Adjustment disorder with depressed mood; Type 2 diabetes mellitus with diabetic polyneuropathy, with long-term current use of insulin ([facility]) Social History Tobacco Use Types Packs/Day Years [...] Upcoming Encounters Date Type Department Care Team ([facility] Contact Info) Description 07/25/2025 1:00 PM EST Medication Management [facility] MED & PEDS [address] [place] [address] Yesi Joyce, PharmD [address] [place] [address] 09/05/2025 3:15 PM EST Office Visit [facility] & PEDS [address] [place], [place] [id number] Karlie Prescott MD [address] [place], [place] [phone] documented as of this encounter Visit Diagnoses Diagnosis Adjustment disorder with depressed mood Type 2 diabetes mellitus with diabetic polyneuropathy, with long-term current use of insulin (HCC) documented in this encounter Care Teams Service Crew Leader Relationship Specialty Start Date End Date Karlie Prescott MD [address] [place] [address] PCP - General Family Medicine 08/15/18 Yesi Joyce, Marlon [address] [place] [address] Pharmacist Internal Medicine 12/13/24 [email or web address] 12/06/22 documented as of this encounter
--- OUTSIDE RECORDS SUMMARY | 2025-07-03 16:11 | XMS_ITS | Encounter Summary ---
Author Organization [employer] Address [address] [facility] 7 [place] [address] Care Team Providers Care Access Services Representative Name Role Phone Karlie Prescott MD Primary Care Provider [phone] Yesi Joyce PharmD Unavailable [phone] Reason for Visit * Reason Comments Med Refill Encounter Details Date Type Department Care Team (Late st Contact Info) Description 06/18/2025 Refill [facility] [address] [place] [address] Karlie Prescott MD [address] [place] [address] Fibromyositis Social History Tobacco Use Types Packs/Day Years Used Date Smoking Tobacco: Never Passive Smoke Exposure: Never Smokeless Tobacco: Never Depression Answer Date Recorded Patient Health Questionnaire-9 Score 14 03/27/2024 Patient Health Questionnaire-9 Score 14 03/27/2024 Last PHQ-9: Questionnaire Data Not on file 0 03/27/2024 Housing Stability Answer Date Recorded What is your housing situation today? I have nishant mclean 09/21/[address] you li ve. Do you have problems with any of the following? None of the above 09/21/2024 Food Insecurity Answer Date Recorded Within the past 12 months, y ou worried that your food would run out before you got money to buy more: Never True 09/21/2024 Within the past 12 months,th e food you bought just didn't last and you didn't have enough money to get more: Never True 02/2025 Transportation Answer Date Recorded In the past [...] Answer Date Recorded Patient Health Questionnaire-2 Score 4 03/27/2024 Internet Access Answer Date Recorded Internet Access [...] Upcoming Encounters Date Type Department Care Team ([facility] st Contact Info) Description 07/25/2025 1:00 PM EST Medication Management [facility] MED & PEDS [address] [place] [address] Yesi Joyce PharmD [address] [place] [address] 09/05/2025 3:15 PM EST Office Visit [facility] MED & PEDS [address] [place] [address] Karlie Prescott MD [address] [place] [address] documented as of this encounter Visit Diagnoses Diagnosis Fibromyositis Unspecified myalgia and myositis documented in this encounter Additional Health Concerns Assessment Noted Time PHQ-9 Depression Total Score: 14 024 10:09 AM EDT documented as of this encounter Care Teams Access Services Representative Relationship Specialty Start Date End Date Karlie Prescott MD [address] [place] [address] PCP - General Family Medicine 08/15/18 Yesi Joyce PharmD [address] [place] [address] Pharmacist Internal Medicine 12/13/24 [employer] 12/06/22 documented as of this encounter
--- OUTSIDE RECORDS SUMMARY | 2025-07-03 16:11 | XMS_ITS | Continuity of Care Document ---
Author Name [facility] Medical Address [address] [place] [id number] Organization Unknown Address [address] [place] [address] Medications No known medications Problems No known problems
--- OUTSIDE RECORDS SUMMARY | 2025-07-03 16:11 | XMS_ITS | Encounter Summary ---
Author Organization [employer] Address [address] [place] [address] [place] [address] Care Team Providers Care Mobile Application Tester Name Role Phone Karlie Prescott MD Primary Care Provider [phone] Yesi Joyce PharmD Unavailable [phone] Reason for Visit * Reason Comments Med Refill Encounter Details Date Type Department Care Team ([facility] st Contact Info) Description 10/18/2024 Refill [facility] CH[facility] MED & PEDS [address] [place], [place] [phone] Karlie Prescott MD [address] [place] [address] Adjustment disorder with depressed mood; Type 2 diabetes mellitus with diabetic polyneuropathy, with long-term current use of insulin ([facility]) Social History Tobacco Use Types Packs/Day Years Used Date Smoking Tobacco: Never Passive Smoke Exposure: Never Smokeless Tobacco: Never Depression Answer Date Recorded Patient Health Questionnaire-9 Score 14 03/27/2024 Patient Health Questionnaire-9 Score 14 03/27/2024 Last PHQ-9: Questionnaire Data Not on file 0 03/27/2024 Housing Stability Answer Date Recorded What is your housing situation today? I have nishant caridad 09/21/[address] you li [...] [facility] [address] [place] [address] Yesi Joyce PharmD [address] [place] [address] 09/05/2025 3:15 PM EST Office Visit [facility] [address] [place] [address] Karlie Prescott MD [address] [place] [address] documented as of this encounter Visit Diagnoses Diagnosis Adjustment disorder with depressed mood Type 2 diabetes mellitus with diabetic polyneuropathy, with long-term current use of insulin (HCC) documented in this encounter Additional Health Concerns Assessment Noted Time PHQ-9 Depression Total Score: 14 024 10:09 AM EDT documented as of this encounter Care Teams Mobile Application Tester Relationship Specialty Start Date End Date Karlie Prescott MD [address] [place] [address] PCP - General Family Medicine 08/15/18 Yesi Joyce, Marlon [address] [place] [address] Pharmacist Internal Medicine 12/13/24 [employer] 12/06/22 documented as of this encounter
--- OUTSIDE RECORDS SUMMARY | 2025-07-03 16:11 | XMS_ITS | Encounter Summary ---
Author Organization [employer] Address [address] [place] [address] [address] [place] [address] Care Team Providers Care Amusement Centre Manager Name Role Phone Karlie Prescott MD Primary Care Provider [phone] Yesi Joyce PharmD Unavailable [phone] Reason for Visit * Reason Comments Med Refill Encounter Details Date Type Department Care Team (Late Contact Info) Description 06/20/2023 Refill [facility] PEDS [address] [place] [address] Sirisha Combs MD [address] [place] [address] Anxiety state Social History Tobacco Use Types Packs/Day Years [...] Description 07/25/2025 1:00 PM EST Medication Management [facility] CH[facility] MED & PEDS [address] [place] [address] Yesi Joyce, PharmD [address] [place] [address] 09/05/2025 3:15 PM EST Office Visit [facility] MED [facility] PEDS [address] [place] [address] Karlie Prescott MD [address] [place] [address] documented as of this encounter Visit Diagnoses Diagnosis Anxiety state Anxiety state, unspecified documented in this encounter Care Teams Amusement Centre Manager Relationship Specialty Start Date End Date Karlie Prescott MD [address] [place] [address] PCP - General Family Medicine 08/15/18 Yesi Joyce, BranD [address] [place] [address] Pharmacist Internal Medicine 12/13/24 [employer] 12/06/22 documented as of this encounter
--- OUTSIDE RECORDS SUMMARY | 2025-07-03 16:11 | XMS_ITS | Data Portability ---
Author Organization [facility] Pain Managem ent, PAIN OFFICE Address [address] [place] [address] Care Team Providers Care Tailman Name Role Phone SHAILA JACKIE Referring Provider [phone] RENAN TAMAYO Primary Care Provider Assessment Encounter Date Assessment Date Assessment LastModified by Organization Details LastModified Time 02/04/2016 02/04/2016 Cortez West is a 60 year old woman with complaints of low back , hip and knee pain. On exam , she has pain on flexion. MRI Lumbar spine shows Mild facet arthropathy at L4-5 and L5-S1 levels . No central. foraminal stenosis is present. We discussed treatment option. 1. Trial of physical therapy - I have given her a prescription for aquatic physical therapy with Roque Johnson at the in [place], [place] She will follow up in four weeks after starting PT 2. I have discussed the importance of good blood glucose control with her diabetes. She will discuss with PCP in regards to endocrinology consult. [email or web address] Not available 02/08/2016 15:18:51 Plan of Treatment Reminders Order Date Submit Date Provider Last Modified By Organization Details Last Modified Time Details Appointments None recorded. Lab None recorded. Referral physical therapist referral - Aquatic physical therapy 2015 016 bebeto Nevarez [facility], [address], [facility], [place], [address], 6 13:24:34 Procedures None recorded. Surgeries None recorded. Imaging None recorded. Medication Orders None recorded. Patient TargetsNo targets recorded. Patient Instructions Encounter Date Encounter Id Patient Instructions Last Modified By Organization Details Last Modified Time 02/04/2016 [id number] She was advised against bed rest lasting longer than four days and to continue activities as tolerated. [email or web address] Not available 02/08/2016 15:18:51 Reason for Referral Aquatic physical therapy Referring Physician: Joby Perdomo, Pain Management, Encounter Date: 02/04/2016 Problems Name Problem SNOMED Code Status Onset Date Resolution Date Notes Provider Name and Address Organization Details Recorded Time Pain of hip region 92674407 Active Joby simons MD [address] , [address], [place], [address], [place] [facility] 6 15:18:51 Displacement of lumbar intervertebral disc without myelopathy 20020521 Active Joby simons MD [address] , [address], [place], [address], [place] [facility] 6 15:18:51 Knee pain Active Joby simons MD [address] , [address], [place], [address], [place] [facility] 6 15:18:51 Muscle pain 17880752 Active Joby simons MD [address] , [address], [place], [address], [place] [facility] 6 15:18:51 Problem Notes None recorded. Medical Equipment None Reported. Allergies No known drug allergies Medications Name Sig Start Date Stop Date Status Note LastModified by Organization Details LastModified Time atorvastatin 40 mg tablet Take 1 tablet every day by oral route. active Not Available Not Available No t Available metformin 500 mg tablet Take 1 tablet twice a day by oral route. active Not Available Not Available No t Available meloxicam 15 mg tablet Take 1 tablet every day by oral route. active Not Available Not Available No t Available clonazepam 0.5 mg tablet Take 1 tablet 3 times a day by oral route. active Not Available Not Available No t Available sertraline 100 mg tablet Take 1 tablet every day by oral route. active Not Available Not Available No t Available tramadol 50 mg tablet Take 1 tablet every 6 hours by oral route. active Not Available Not Available Not Available amitriptylin e 50 mg tablet Take 1 tablet every day by oral route. active Not Available Not Available No t Available methocarbamo l 750 mg tablet Take 1 tablet every 4 hours by oral route. active Not Available Not Available Not Available trazodone 100 mg tablet Take 1 tablet every day by oral route. active Not Available Not Available No t Available omeprazole 20 mg capsule,robbi yed release Take 1 capsule every day by oral route. active Not Available Not Available No t Available lisinopril 5 mg tablet Take 1 tablet every day by oral route. active Not Available Not Available No t Available ibuprofen 600 mg tablet Take 1 tablet 3 times a day by oral route. active Not Available Not Available No t Available Lyrica 300 mg capsule Take 1 capsule twice a day by oral route. active Not Available Not Available No t Available Novolog FlexPen U-100 Insulin active Not Available Not Available Not Available Vitamin D3 125 mcg (5,000 unit) tablet Take by oral route. active Not Available Not Available Not Available loratadine 10 mg capsule Take by oral route. active Not Available Not Available Not Available Trulicity 0.75 mg/0.5 mL subcutaneous pen injector Inject 0.5 mL every week by subcutaneou s route. active Not Available Not Available No t Available Vitals Date Recorded Body mass index (BMI) Oxygen saturation Oxygen saturation in Arterial blood by Pulse oximetry Body weight Heart rate Body height Systolic And Diastolic Provider Name and Address Organization Details Last Updated DateTime 6 22.6 kg/m2 100 % 100 % 72210.9 318 g 111 /min 167.64 cm 125/62 mm[Hg] Marcie Garcia [facility] 6 14:15:12 Social History Question Answer Notes LastModified by Organizat ion Details LastModified Time Tobacco Smoking Status Never Smoker Not Available [facility] 05/30/2020 03:16:10 Which Illicit Or Recreational Drugs Have You Used? No [id number] Information not available 05/30/2020 Education 12 [email or web address] Information no t available 02/04/2016 Live Alone Or With Others? With Others And Daughter [email or web address] Information not available 02/04/2016 Marital Status [email or web address] Informatio n not available 02/04/2016 Sex: Unknown Functional Status Question Answer Note LastModified by Organization D etails LastModified Time What is your level of alcohol consumption? None [id number] Information not available 05/30/2020 Are you currently employed? No [id number] Information not available 05/30/2020 Mental Status None recorded. Family History Nothing Reported. Medical History Condition Response Anxiety Disorder Y Diabetes Y Neuropathy/Neuralgia Y Headache Y Arthritis Y High Cholesterol Y GERD/Reflux Y Fibromyalgia Y Hypertension Y Depression Y Gynecological HistoryNo gynecological history recorded. Obstetrics History GPAL:G 0 P 0 0 0 0 Past Encounters Encounter ID Performer Location Encounter Start Date Encounter Closed Date Diagnosis/Indication Diagnosis SNOMED-CT Code Diagnosis ICD10 Code Diagnosis IMO Codes Diagnosis Note [id number] Joby Perdomo MD PAIN OFFICE [address] [place] [address] 02/04/2016 13:34:21 02/08/2016 15:19:28 Displacement of lumbar intervertebral disc without myelopathy 85340444 M51.26 Pain of hip region 24644 002 M25.551 M25.552 Knee pain 18207370 M25.5 61 M25.562 Muscle pain 96550168 M79 .1 Health Concerns Section Related Observation LastModified by Organization Detai ls LastModified Time None Recorded Concern Status LastModified by Organization Details LastModified Time None Recorded Advance Directives Directive None Recorded Payers Insurance Date Sequence Insurance Name Policy Number Policy Alcantar Covered Member ID Alcantar Member ID Guarantor Name 02/04/2016 1 [facility] - DOS PRIOR TO 2022 - DUAL ELIGIBLE (MEDICARE REPLACEMENT/AD VANTAGE - HMO) Daksha West [id number] Daksha West Notes Date Note Type Note Provider Name and Address Organization Details Recorded Time 02/04/2016 text/html Daksha West is a 60 year old woman with low back pain, hip and knee pain for the past 2 1/2 months . Joby Perdomo MD [address] , [address], [place], [address], [facility] - Pain Management 02/10/2016 20:09:54 OBGyn Episode No OBEpisode recorded.
--- OUTSIDE RECORDS SUMMARY | 2025-07-03 16:11 | XMS_ITS | Encounter Summary ---
Author Organization [employer] Address [address] 7 [place] [address] Care Team Providers Care Water Pollution Control Technician Name Role Phone Karlie Prescott MD Primary Care Provider [phone] Yesi Joyce PharmD Unavailable [phone] Reason for Visit * Reason Onset Date Comments Med Refill 10/14/2023 Encounter Details Date Type Department Care Team (Late st Contact Info) Description 10/14/2023 Telephone [facility] MEDICINE [address] [place] [address] Karlie Prescott MD [address] [place] [address] Med Refill Social History Tobacco Use Types Packs/Day Years Used Date Smoking Tobacco: Never Passive Smoke Exposure: Never Smokeless Tobacco: Never Depression Answer Date Recorded Patient Health Questionnaire-9 Score 7 10/13/2023 Patient Health Questionnaire-9 Score 7 10/13/2023 Last PHQ-9: Questionnaire Data Not on file 0 10/13/2023 Housing Stability Answer Date Recorded What is your housing situation today? I have nishant mclean 09/12/[address] you li ve. Do you have problems with any of the following? None of the above 09/12/2023 Food Insecurity Answer Date Recorded Within the past 12 months, y ou worried that your food would run out before you got money to buy more: Never True 09/12/2023 Within the past 12 months,th e food you bought just didn't last and you didn't have enough money to get more: Never True Transportation Answer Date Recorded In the past 12 months, has l ack of transportation kept you from medical appts, meetings, work or from getting things needed for daily living? No 09/12/2023 Utilities Answer Date Recorded In the past 12 months, has t he electric, gas, oil or water company threatened to shut off services in your home? No 09/12/2023 Depression Answer Date Recorded Patient Health Questionnaire-2 Score 2 10/13/2023 Comments No Sex and Gender Information Value Date Recorded Sex Assigned at Female 06/14/2022 10:18 AM EDT Legal Sex Female 10:18 AM EDT Gender Identity Female 06/14/2022 10:18 AM EDT Sexual Orientation Choose not to disclose 2021 10:18 AM EDT documented as of this encounter Miscellaneous Notes * Telephone Encounter - Sharon Marquis - 10/14/2023 11:08 AM EST Tc from pt calling requesting script on Lidocaine patches Dr Burnette stated will send yesterday. documented in this encounter Plan of Treatment Upcoming Encounters Date Type Department Care Team (Late st Contact Info) Description 07/25/2025 1:00 PM EST Medication Management [facility] [address] [place] [address] Yesi Joyce, PharmD [address] [place] [address] 09/05/2025 3:15 PM EST Office Visit [facility] [address] [place] [address] Karlie Prescott MD [address] [place] [address] documented as of this encounter Visit Diagnoses Not on filedocumented in this encounter Additional Health Concerns Assessment Noted Time PHQ-9 Depression Total Score: 7 10/13/19 24 9:13 AM EST documented as of this encounter Care Teams Water Pollution Control Technician Relationship Specialty Start Date End Date Karlie Prescott MD [address] [place] [address] PCP - General Family Medicine 08/15/18 Yesi Joyce PharmD [address] [place] [address] Pharmacist Internal Medicine 12/13/24 [facility] 12/06/22 documented as of this encounter
--- OUTSIDE RECORDS SUMMARY | 2025-07-03 16:11 | XMS_ITS | Encounter Summary ---
Author Organization [employer] Address [address] [place] [address] 7 [place] [address] Care Team Providers Care Dermatology Teacher Name Role Phone Karlie Prescott MD Primary Care Provider [phone] Yesi Joyce PharmD Unavailable [phone] Reason for Visit * Reason Comments Med Refill Encounter Details Date Type Department Care Team (Late st Contact Info) Description 05/20/2023 Refill [facility] MEDICINE [address] [place] [address] Karlie Prescott MD [address] [place] [address] Fibromyositis Social History Tobacco Use Types Packs/Day [...] Description 07/25/2025 1:00 PM EST Medication Management [facility] [address] [place] [address] Yesi Joyce, PharmD [address] [place] [address] 09/05/2025 3:15 PM EST Office Visit [facility] [address] [place] [address] Karlie Prescott MD [address] [place] [address] documented as of this encounter Visit Diagnoses Diagnosis Fibromyositis Unspecified myalgia and myositis documented in this encounter Care Teams Dermatology Teacher Relationship Specialty Start Date End Date Karlie Prescott MD [address] [place] [address] PCP - General Family Medicine 08/15/18 Yesi Joyce, BranD [address] [place] [address] Pharmacist Internal Medicine 12/13/24 [employer] [facility] 12/06/22 documented as of this encounter
--- OUTSIDE RECORDS SUMMARY | 2025-07-03 16:11 | XMS_ITS | Encounter Summary ---
Author Organization [employer] Address [address] [place] [address] 7 [place] [address] Care Team Providers Care Research Food Technologist Name Role Phone Karlie Prescott MD Primary Care Provider [phone] Yesi Joyce PharmD Unavailable [phone] Reason for Visit * Reason Comments Med Refill Encounter Details Date Type Department Care Team ([facility] st Contact Info) Description 02/22/2025 Refill [facility] & PEDS [address] [place], [place] [phone] Karlie Prescott MD [address] [place] [address] Fibromyositis Social History Tobacco Use Types Packs/Day [...] Upcoming Encounters Date Type Department Care Team ([facility] st Contact Info) Description 07/25/2025 1:00 PM EST Medication Management [facility] [address] [place] [address] Yesi Joyce PharmD [address] [place] [address] 09/05/2025 3:15 PM EST Office Visit [facility] [address] [place] [address] Karlie Prescott MD [address] [place] [address] documented as of this encounter Visit Diagnoses Diagnosis Fibromyositis Unspecified myalgia and myositis documented in this encounter Additional Health Concerns Assessment Noted Time PHQ-9 Depression Total Score: 14 024 10:09 AM EDT documented as of this encounter Care Teams Research Food Technologist Relationship Specialty Start Date End Date Karlie Prescott MD [address] [place] [address] PCP - General Family Medicine 08/15/18 Yesi Joyce PharmD [address] [place] [address] Pharmacist Internal Medicine 12/13/24 [facility] [facility] 12/06/22 documented as of this encounter
--- OUTSIDE RECORDS SUMMARY | 2025-07-03 16:11 | XMS_ITS | Encounter Summary ---
Author Organization [employer] Address [address] [place] [address] 7 [place] [address] Care Team Providers Care Monument Setter Name Role Phone Karlie Prescott MD Primary Care Provider [phone] Yesi Joyce PharmD Unavailable [phone] Reason for Visit * Reason Comments Med Refill Encounter Details Date Type Department Care Team ([facility] st Contact Info) Description 03/28/2025 Refill [facility] MED & PEDS [address] [place], [place] [phone] Karlie Prescott MD [address] [place] [address] Fibromyositis Social History Tobacco Use Types Packs/Day [...] Upcoming Encounters Date Type Department Care Team ([facility] st Contact Info) Description 07/25/2025 1:00 PM EST Medication Management [facility] [address] [place] [address] Yesi Joyce PharmD [address] [place] [address] 09/05/2025 3:15 PM EST Office Visit [facility] [address] [place] [address] Karlie Prescott MD [address] [place] [address] documented as of this encounter Visit Diagnoses Diagnosis Fibromyositis Unspecified myalgia and myositis documented in this encounter Additional Health Concerns Assessment Noted Time PHQ-9 Depression Total Score: 14 024 10:09 AM EDT documented as of this encounter Care Teams Monument Setter Relationship Specialty Start Date End Date Karlie Prescott MD [address] [place] [address] PCP - General Family Medicine 08/15/18 Yesi Joyce PharmD [address] [place] [address] Pharmacist Internal Medicine 12/13/24 [facility] [employer] 12/06/22 documented as of this encounter
--- OUTSIDE RECORDS SUMMARY | 2025-07-03 16:11 | XMS_ITS | Encounter Summary ---
Author Organization [employer] Address [address] [place] [address] [address] [place] [address] Care Team Providers Care Plant Manager Name Role Phone Karlie Prescott MD Primary Care Provider [phone] Yesi Joyce PharmD Unavailable [phone] Reason for Visit * Reason Onset Date Comments Chart Prep 07/01/2025 Encounter Details Date Type Department Care Team ([facility] Contact Info) Description 07/01/2025 Telephone [facility] CH[facility] MED & PEDS [address] [place] [address] Karlie Prescott MD [address] [place] [address] Chart Prep Social History Tobacco Use Types Packs/Day Years [...] encounter Miscellaneous Notes * Telephone Encounter - Wilma Monzon [place] - 07/01/2025 9:24 AM EST Chart Prep Labs: not applicable Images: not done Referrals: no show Vaccines due: no updates Screenings: mammogram, eye exam, and foot exam Overdue care gaps: SBIRT, PHQ-9, and Tobacco documented in this encounter Plan of Treatment Upcoming Encounters Date Type Department Care Team ([facility] st Contact Info) Description 07/25/2025 1:00 PM EST Medication Management [facility] [address] [place] [address] Yesi Joyce, PharmD [address] [place] [address] 09/05/2025 3:15 PM EST Office Visit [facility] [address] [place] [address] Karlie Prescott MD [address] [place] [address] documented as of this encounter Goals Goal [...] 07/01/2025 Patient has chronic kidney disease 07/01/2025 Assessment Noted Time PHQ-9 Depression Total Score: 14 024 10:09 AM EDT documented as of this encounter Care Teams Plant Manager Relationship Specialty Start Date End Date Karlie Prescott MD [address] [place] [address] PCP - General Family Medicine 08/15/18 Yesi Joyce PharmD [address] [place] [address] Pharmacist Internal Medicine 12/13/24 [employer] 12/06/22 documented as of this encounter
== END 2025-07-03 08:28 | disposition home or self-care (01) ==
LOC: HO.CHCLDS 08:27
PROVIDERS: Visit Provider Pediatrics
DX: Z13.29 Encounter for screening for other suspected endocrine disorder (principal); R35.89 Other polyuria; R42 Dizziness and giddiness; R55 Syncope and collapse; E11.40 Type 2 diabetes mellitus with diabetic neuropathy, unspecified; M25.512 Pain in left shoulder; G89.29 Other chronic pain; Z79.4 Long term (current) use of insulin
CPT/HCPCS: 36415; 80048; 80061; 80076; 82043; 82570; 84443; 85025